=== PATIENT | female | born 1985 | race Caucasian/White ===

== ENCOUNTER 2016-07-22 00:20 | Outpatient (CLI) | payer BC, MEDICAID ==
[2016-07-22 01:17] LABS: APPEARANCE,URINE CLEAR; BILIRUBIN,URINE NEGATIVE (NEGATIVE); GLUCOSE, URINE NEGATIVE (NEGATIVE); KETONES,URINE NEGATIVE (NEGATIVE); LEUKOCYTE ESTERASE,URINE NEGATIVE (NEGATIVE); NITRITE,URINE NEGATIVE (NEGATIVE); PROTEIN,URINE NEGATIVE (NEGATIVE); URINE SPECIFIC GRAVITY 1.009; UROBILINOGEN,URINE NEGATIVE mg/dL (<2.0)
[2016-07-22 01:34] LABS: URINE BARBITURATES SCREEN NEGATIVE; URINE METHADONE SCREEN NEGATIVE; URINE OPIATES LOW NEGATIVE
[2016-07-22 01:52] LABS: URINE PHENCYCLIDINE SCREEN NEGATIVE
--- NOTE | 2016-07-22 04:46 | L&D Flow Sheet ---
LD Flowsheet Datetime Report Generated by CPN: 07/22/2016 04:45 Datetime: 07/22/2016 02:12 Vital Signs Stage of : OB Triage (Crystal [place], RN) Communication Comments: Pt left the unit ambulatory with mother, pt care relinquished. (Crystal [place], RN) Datetime: 07/22/2016 02:04 Vital Signs Stage of : OB Triage (Miriam Álvarez RN) Strip Reviewed by: Tarsha Álvarez RN (Miriam Álvarez RN) Communication Communication: RN at Bedside; RN Reviewed Strip (Miriam Álvarez RN) Notification Reason: Status Update; Lab/Diagnostic Study (Miriam Álvarez RN) Communication Comments: Pt taken off the monitors. Pt educated on the effects of drinking during and mixing alcohol with medications, pt mother will be driving her home from the hospital. Pt will follow up with [facility] as scheduled. labor education given. (Miriam Álvarez RN) Datetime: 07/22/2016 02:01 Vital Signs Stage of : OB Triage (Miriam Álvarez RN) Strip Reviewed by: Tarsha Álvarez RN (Miriam Álvarez RN) Communication Communication: Provider Orders Received (Miriam Álvarez RN) Provider Notified (Name): Gleason (Miriam Álvarez RN) Notification Reason: Status Update (Miriam Álvarez RN) Communication Comments: REport given on VE and blood alcohol level of 0.12, Receivered orders to DC. (Crystal Henri, RN) Datetime: 07/22/2016 01:51 I/O Interventions: Up to BR (Crystal Henri, RN) Datetime: 07/22/2016 01:47 Vaginal Exam Dilatation (cm): 0.0 (Kristine Green RN) Effacement (%): 0 (Kristine Green RN) Station: -3 (Kristine Green RN) Exam by: Raz Green RN (Kristine Peter, RN) Vaginal Bleeding: None (Kristine Peter, RN) Cervix, Consistency: Firm (Kristine Peter, RN) Cervix, Position: Posterior (Kristine Peter, RN) Datetime: 07/22/2016 01:30 Uterine Activity Monitor Mode: External; Palpation (Crystal [place], RN) Frequency (min): 0 (Crystal Henri, RN) Resting Tone (Palpate): Relaxed (Crystal Henri, RN) Contraction Comments: Pt reports back cramping (Crystal Henri, RN) Assessment A Monitor Mode: External US (Crystal Henri, RN) FHR Baseline Rate : 125 (Crystal Henri, RN) Variability: Minimal - Undetectable to <=5 bpm (Crystal Henri, RN) Accelerations: None (Crystal Henri, RN) Decelerations: None (Crystal [place], RN) Datetime: 07/22/2016 01:29 Patient Care IV/Blood Work: Labs Drawn (Crystal Henri, RN) Datetime: 07/22/2016 01:22 I/O Interventions: Popsicle; Clear Liquids Given (Crystal Henri, RN) Datetime: 07/22/2016 01:17 Vital Signs Stage of : OB Triage (Crystal [place], RN) Strip Reviewed by: C. Pendrgrass, RN (Crystal [place], RN) Communication Communication: Call/Page Placed to Provider (Crystal [place], RN) Provider Notified (Name): Gleason (Crystal Henri, RN) Notification Reason: Status Update; Uterine Activity (Miriam Álvarez, RN) Communication Comments: Received orders for blood alcohol level and cervical exam. (Miriam Álvarez, RN) Datetime: 07/22/2016 01:07 NBP Sys/Eva/Mean (mmHg): 140 (QS system process) : 80 (QS system process) : 104 (QS system process) Pulse: 95 (QS system process) Datetime: 07/22/2016 01:00 Assessment A Monitor Mode: External US (Crystal Henri, RN) FHR Baseline Rate : 125 (Crystal [place], RN) Variability: Minimal - Undetectable to <=5 bpm (Crystal [place], RN) Accelerations: None (Crystal Henri, RN) Decelerations: None (Crystal Henri, RN) Datetime: 07/22/2016 00:30 Pain Pain Scale: 3 (Crystal Henri, RN) Pain Presence: Constant (Crystal [place], RN) Pain Type: Cramping (Crystal Henri, RN) Pain Location: Abdomen (Crystal Henri, RN) Pain Goal: 1 (Crystal [place], RN) Pain Relief Measures: Comfort Measures (Crystal Henri, RN) Vaginal Bleeding: None (Crystal [place], RN) Maternal Assessment Level of Consciousness: Fully Conscious (Crystal Henri, RN) DTR's/Clonus: DTRs 1+; No Clonus (Crystal Henri, RN) Headache: Denies (Crystal Henri, RN) Breath Sounds, Left: Clear and Equal (Crystal Henri, RN) Breath Sounds, Right: Clear and Equal (Crystal Henri, RN) Nausea/Vomiting: Denies (Crystal Henri, RN) RUQ Epigastric Pain: Denies (Crystal [place], RN)
--- NOTE | 2016-07-22 04:46 | L&D General Admission ---
General Admit Datetime Report Generated by CPN: 07/22/2016 04:45 INFORMATION Patient Age: 30 (07/22/2016 00:21:QS system process) EDC: 10/15/2016 00:00 (07/22/2016 00:24:Miriam Álvarez RN) : 2 (07/22/2016 00:24:Miriam Álvarez RN) Para: 0 (07/22/2016 02:11:Miriam Álvarez RN) Para: 0 (07/22/2016 00:24:Miriam Álvarez RN) Term: 0 (07/22/2016 00:24:Verena Dexter RN) : 0 (07/22/2016 00:24:Verena Dexter RN) Spontaneous Abortions: 0 (07/22/2016 00:24:Verena Dexter RN) Induced Abortions: 1 (07/22/2016 00:24:Verena Dexter RN) Livin (07/22/2016 00:24:Verena Dexter RN) Cesareans: 0 (07/22/2016 00:24:Verena Dexter RN) VBACs: 0 (07/22/2016 00:24:Verena Dexter RN) Ectopic: 0 (07/22/2016 00:24:Verena Dexter RN) Multiple Births: 0 (07/22/2016 00:24:Verena Dexter RN) Baby, Number in Womb: 1 (07/22/2016 02:11:Miriam Álvarez RN) Baby, Number in Womb: 1 (07/22/2016 00:24:Verena Dexter RN) CARE Primary College Sports Assistant: [facility] (07/22/2016 00:24:Miriam Álvarez RN) Adequate Care: Yes (07/22/2016 00:24:Miriam Álvarez RN) Height (in): 66 (07/22/2016 00:41:QS system process) Height (in): 66 (07/22/2016 00:37:QS system process) ALLERGIES Medication Allergy: Yes (07/22/2016 00:24:Miriam Álvarez RN) Medication Allergies: lisinopril (07/22/2016); erythromycin base (07/22/2016); mirtazapine (07/22/2016) (07/22/2016 00:41:QS system process) Medication Allergies: lisinopril (04/11/2016); erythromycin base (04/11/2016); mirtazapine (04/11/2016) (07/22/2016 00:21:QS system process) Latex Allergy: No Latex Allergies (07/22/2016 00:24:Miriam Álvarez RN) COMMUNICATION Primary Language: Georgian (07/22/2016 00:24:Miriam Álvarez RN) Medical Tx Preferred Language: Georgian (07/22/2016 00:24:Miriam Álvarez RN) Communication Barrier(s): None (07/22/2016 00:24:Miriam Álvarez RN) DEMOGRAPHICS Address: [address] [place] [id number] (07/22/2016 00:21:QS system process) Zipcode: [address] (07/22/2016 00:21:QS system process) Home (07/22/2016 00:21:QS system process) SSN: [id number] (07/22/2016 00:21:QS system process) Next of Kin Name: WILLIAM PALACIOS (07/22/2016 00:21:QS system process) Next of Kin (07/22/2016 00:21:QS system process) Next of Kin Relationship: MO (07/22/2016 00:21:QS system process) Date of : 1985 (07/22/2016 00:21:QS system process) Marital Status: Single (07/22/2016 00:21:QS system process) Sex: Female (07/22/2016 00:21:QS system process) Race: (07/22/2016 00:21:QS system process) Ethnicity: Non- or (07/22/2016 00:21:QS system process) Latter-Day: No Taoist Info Avail. (07/22/2016 00:21:QS system process) DRUG AND ALCOHOL USE Alcohol: Yes (07/22/2016 00:24:Miriam Álvarez RN) Cigarettes: Current Some Day Smoker. [id number] (07/22/2016 00:24:Miriam Álvarez RN) Marijuana: No (07/22/2016 00:24:Miriam Álavrez RN) Cocaine: No (07/22/2016 00:24:Miriam Álvarez RN) Other Illicit Drugs: No (07/22/2016 00:24:Miriam Álvarez RN) VACCINE HISTORY Influenza Vaccine: Yes (07/22/2016 00:24:Verena Dexter RN) Pneumococcal Vaccine: No (07/22/2016 00:24:Miriam Álvarez RN) Tetanus Vaccine: No (07/22/2016 00:24:Miriam Álvarez RN) Tdap Vaccine: No (07/22/2016 00:24:Miriam Álvarez RN) Hepatitis B Vaccine: No (07/22/2016 00:24:Miriam Álvarez RN) Ob Scrub Tech: Other (07/22/2016 00:24:Miriam Álvarez RN) Feeding Preference: Breast (07/22/2016 00:24:Miriam Álvarez RN) Benefit of Breast Feed Discussed: Yes (07/22/2016 00:24:Miriam Álvarez RN) Circumcision: N/A (07/22/2016 00:24:Miriam Álvarez RN) Classes Attended: Unknown (07/22/2016 00:24:Miriam Álvarez RN) Tubal Ligation: No (07/22/2016 00:24:Miriam Álvarez RN) Tubal Authorization Signed: N/A (07/22/2016 00:24:Miriam Álvarez RN) Consent: N/A (07/22/2016 00:24:Miriam Álvarez RN) Consent Signed: N/A (07/22/2016 00:24:Miriam Álvarez RN) Pain Management Plans: Epidural (07/22/2016 00:24:Miriam Álvarez RN) Support Person Relationship: Other (07/22/2016 00:24:Miriam Álvarez RN) Cultural/Spritual Practice: No (07/22/2016 00:24:Miriam Álvarez RN) Spir/Cult Dietary Needs: No (07/22/2016 00:24:Miriam Álvarez RN) LIVING SITUATION/DISCHARGE PLAN Living Arrangements: House (07/22/2016 00:24:Miriam Álvarez RN) Adequate Access to:: Electric; Heat; Refrigeration; Plumbing/Running water; Phone; Transportation (07/22/2016 00:24:Miriam Álvarez RN) WIC Program: Yes (07/22/2016 00:24:Miriam Álvarez RN) Currently Using Commun Resources: Yes (07/22/2016 00:24:Miriam Álvarez RN) Outside Agency/[facility] Nurse: Yes (07/22/2016 00:24:Miriam Álvarez RN) Car Seat for Discharge: No (07/22/2016 00:24:Miriam Álvarez RN) Adoption Requested: No (07/22/2016 00:24:Miriam Álvarez RN) Pt Contact w/ Post : N/A (07/22/2016 00:24:Miriam Álvarez RN) LABS Blood Type: A Positive (07/22/2016 00:24:Miriam Álvarez RN) Antibody Screen: Negative (07/22/2016 00:24:Miriam Álvarez RN) Gonorrhea: Negative (07/22/2016 00:24:Miriam Álvarez RN) Chlamydia: Negative (07/22/2016 00:24:Miraim Álvarez RN) RPR/VDRL: Nonreactive (07/22/2016 00:24:Verena Dexter RN) Hepatitis B: Negative (07/22/2016 00:24:Verena Dexter RN) Rubella: Immune (07/22/2016 00:24:Miriam Álvarez RN) OB/PREVIOUS HISTORY Current Procedures: Ultrasound (07/22/2016 00:24:Verena Dexter RN) History of Previous : No (07/22/2016 00:24:Miriam Álvarez RN) History of Gestational Diabetes: No (07/22/2016 00:24:Miriam Álvarez RN) History of PIH: No (07/22/2016 00:24:Miriam Álvarez RN) History of Incompetent Cervix: No (07/22/2016 00:24:Miriam Álvarez RN) History of Placenta Previa/Abrup: No (07/22/2016 00:24:Miriam Álvarez RN) History of Macrosomia: No (07/22/2016 00:24:Miriam Álvarez RN) History of IUGR: Yes (07/22/2016 00:24:Verena Dexter RN) History of Hemorrhage: No (07/22/2016 00:24:Miriam Álvarez RN) History of Loss/Stillborn: No (07/22/2016 00:24:Miriam Álvarez RN) History of : No (07/22/2016 00:24:Miriam Álvarez RN) History of D (Rh) Sensitization: No (07/22/2016 00:24:Miriam Álvarez RN) History Recurrent Loss/Stillborn: No (07/22/2016 00:24:Miriam Álvarez RN) History Depression/PP Depression: No (07/22/2016 00:24:Miriam Álvarez RN) History of Uterine Anomaly/SANTIAGO: No (07/22/2016 00:24:Miriam Álvarez RN) History of Infertility: No (07/22/2016 00:24:Miriam Álvarez RN) History of ART Treatment: No (07/22/2016 00:24:Miriam Álvarez RN) History of SANTIAGO: No (07/22/2016 00:24:Miriam Álvarez RN) Comments Obstetrical History: G1: 10 wk EAB G2: Current , PROM and anhydramnios at 13 weeks. Membranes resealed, per MFM amniotic fluid reaccumulated since, IUGR (07/22/2016 00:24:Verena Dexter RN) MEDICAL HISTORY Med Hx Diabetes: No (07/22/2016 00:24:Miriam Álvarez RN) Med Hx Hypertension: Yes (07/22/2016 00:24:Verena Dexter RN) Med Hx Heart Disease: No (07/22/2016 00:24:Miriam Álvarez RN) Med Hx Autoimmune Disorder: No (07/22/2016 00:24:Miriam Álvarez RN) Med Hx Kidney Disease/UTI: Yes (07/22/2016 00:24:Verena Dexter RN) Med Hx Neurologic/Epilepsy: No (07/22/2016 00:24:Miriam Álvarez RN) Med Hx Psychiatric Disorders: Yes (07/22/2016 00:24:Verena Dexter RN) Med Hx Hepatitis/Liver Disease: No (07/22/2016 00:24:Miriam Álvarez RN) Med Hx Varicosities/Phlebitis: No (07/22/2016 00:24:Miriam Álvarez RN) Med Hx Thyroid Dysfunction: No (07/22/2016 00:24:Miriam Álvarez RN) Med Hx Trauma/Violence: No (07/22/2016 00:24:Miriam Álvarez RN) Med Hx Blood Transfusion: No (07/22/2016 00:24:Miriam Álvarez RN) Med Hx Pulmonary (Asthma,TB): No (07/22/2016 00:24:Miriam Álvarez RN) Med Hx Breast: No (07/22/2016 00:24:Miriam Álvarez RN) Med Hx CLINICAL RESEARCH ASSOCIATE Surgery: No (07/22/2016 00:24:Miriam Álvarez RN) Med Hx Hospitalization/Surgery: Yes (07/22/2016 00:24:Verena Dexter RN) Med Hx Anesthetic Complications: No (07/22/2016 00:24:Miriam Álvarez RN) Med Hx Abnormal Pap Smear: No (07/22/2016 00:24:Miriam Álvarez RN) Other Medical Diseases: No (07/22/2016 00:24:Miriam Álvarez RN) Med Hx Significant Family Hx: No (07/22/2016 00:24:Miriam Álvarez RN) Details of Med/Surg Hx: htn: chronic htn, on labetalol and clonidine kidney: freq UTIs, on macrobid suppresion, "short" urethra psych: severe anxiety, depression GERD surgical: ankle, wisdom teeth (07/22/2016 00:24:Verena Dexter RN) INFECTIOUS HISTORY Inf Hx Gonorrhea: No (07/22/2016 00:24:Miriam Álvarez RN) Inf Hx Chlamydia: Yes (07/22/2016 00:24:Verena Dexter RN) Inf Hx Syphilis: No (07/22/2016 00:24:Miriam Álvarez RN) Inf Hx HIV/AIDS: No (07/22/2016 00:24:Miriam Álvarez RN) Inf Hx Human Papilloma Virus: No (07/22/2016 00:24:Miriam Álvarez RN) Inf Hx Pt/Partner Genital Herpes: No (07/22/2016 00:24:Miriam Álvarez RN) Inf Hx Tuberculosis/Exposure: No (07/22/2016 00:24:Miriam Álvarez RN) Inf Hx Hepatitis B,C: No (07/22/2016 00:24:Miriam Álvarez RN) Inf Hx Rash or Viral Illness: No (07/22/2016 00:24:Miriam Álvarez RN) Details of Infectious Hx: chlamydia 2013 (07/22/2016 00:24:Verena Dexter RN) GENETIC HISTORY Gen Hx Age >=35 at [place]: No (07/22/2016 00:24:Miriam Álvarez RN) Gen Hx Thalassemia: No (07/22/2016 00:24:Miriam Álvarez RN) Gen Hx Congenital Heart Defect: No (07/22/2016 00:24:Miriam Álvarez RN) Gen Hx Neural Tube Defect: No (07/22/2016 00:24:Miriam Álvarez RN) Gen Hx Down's Syndrome: No (07/22/2016 00:24:Miriam Álvarez RN) Gen Hx Jose Martin-Sachs: No (07/22/2016 00:24:Miriam Álvarez RN) Gen Hx Galen: No (07/22/2016 00:24:Miriam Álvarez RN) Gen Hx Familial Dysautonomia: No (07/22/2016 00:24:Miriam Álvarez RN) Gen Hx Sickle Cell Disease/Trait: No (07/22/2016 00:24:Miriam Álvarez RN) Gen Hx Hemophilia/Blood Disorder: No (07/22/2016 00:24:Miriam Álvarez RN) Gen Hx Muscular Dystrophy: No (07/22/2016 00:24:Miriam Álvarez RN) Gen Hx Cystic Fibrosis: No (07/22/2016 00:24:Miriam Álvarez RN) Gen Hx Huntingtons Chorea: No (07/22/2016 00:24:Miriam Álvarez RN) Gen Hx Mental Retardation/Autism: No (07/22/2016 00:24:Miriam Álvarez RN) Gen Hx Tested for Fragile X: No (07/22/2016 00:24:Miriam Álvarez RN) Gen Hx Other Inher/Chromosomal: No (07/22/2016 00:24:Miriam Álvarez RN) Gen Hx Maternal Metabolic DO: No (07/22/2016 00:24:Miriam Álvarez RN) Gen Hx Pt Father or FOB Defect: No (07/22/2016 00:24:Miriam Álvarez RN) Gen Hx Other Genetic History: No (07/22/2016 00:24:Miriam Álvarez RN) Gen Hx Drugs/Meds since LMP: No (07/22/2016 00:24:Miriam Álvarez RN)
--- NOTE | 2016-07-22 04:46 | L&D Current Admission ---
Current Admit Datetime Report Generated by CPN: 07/22/2016 04:45 ADMISSION INFORMATION Chief Complaint: Uterine Cramping (07/22/2016 00:30:Crystal Henri, STEFANI)
--- NOTE | 2016-07-22 04:46 | Antepartum Discharge Summary ---
Antepartum DC Datetime Report Generated by CPN: 07/22/2016 04:45 DIET/ACTIVITY/RESTRICTIONS Diet: Regular (07/22/2016 02:11:Crystal Henri, RN) Activity: Normal Activity (07/22/2016 02:11:Crystal Henri, RN) TEACHING/INSTRUCTIONS/REFERRALS Instructions Given To: Pt _ mom (07/22/2016 02:11:Crystal [place], RN) Instructions Understood: Patient Verbalized Understanding; Support Person Verbalized Understanding (07/22/2016 02:11:Miriam Álvarez RN) Referrals: None (07/22/2016 02:11:Miriam Álvarez RN) Educational Materials- Other: labor education given. (07/22/2016 02:11:Miriam Álvarez RN) DISCHARGE INFORMATION Discharged AMA: No (07/22/2016 02:11:Miriam Álvarez RN) Discharge Date/Time: 07/22/2016 02:12 (07/22/2016 02:11:Miriam Álvarez RN) Discharged To: Home (07/22/2016 02:11:Miriam Álvarez RN) Discharge Provider Name: Gleason (07/22/2016 02:11:Miriam Álvarez RN) Accompanied By: mother (07/22/2016 02:11:Miriam Álvarez RN) Discharge Method: Ambulatory (07/22/2016 02:11:Miriam Álvarez RN) Condition: Stable (07/22/2016 02:11:Miriam Álvarez RN) FOLLOW UP INFORMATION Follow Up With: [facility] (07/22/2016 02:11:Miriam Álvarez RN) Follow Up On: As Scheduled (07/22/2016 02:11:Miriam Álvarez RN) Follow Up Phone Number: [facility] - (07/22/2016 02:11:Miriam Álvarez RN) Comments: Pt taken off the monitors. Pt educated on the effects of drinking during and mixing alcohol with medications, pt mother will be driving her home from the hospital. Pt will follow up with [facility] as scheduled. labor education given. (07/22/2016 02:11:Miriam Álvarez RN)
--- NOTE | 2016-07-22 04:46 | L&D Discharge Summary ---
OB Discharge Summary Datetime Report Generated by CPN: 07/22/2016 04:45 DISCHARGE DIAGNOSIS Diagnosis/Symptoms: False Labor Diagnoses/Symptoms Other: Pt taken off the monitors. Pt educated on the effects of drinking during and mixing alcohol with medications, pt mother will be driving her home from the hospital. Pt will follow up with [facility] as scheduled. labor education given. Treatment/Procedures Other: Popsicle and fluids Number of Babies in Womb: 1 Parity: 0 DIET/ACTIVITY/RESTRICTIONS Diet: Regular Activity: Normal Activity TEACHING/INSTRUCTIONS/REFERRALS Instructions Given To: Pt _ mom Instructions Understood: Patient Verbalized Understanding; Support Person Verbalized Understanding Referrals: None Educational Materials- Other: labor education given. DISCHARGE INFORMATION Discharged AMA: No Discharge Date/Time: 07/22/2016 02:12 Discharged To: Home Discharge Provider Name: Gleason Accompanied By: mother Discharge Method: Ambulatory Condition: Stable FOLLOW UP INFORMATION Follow Up With: [facility] Follow Up On: As Scheduled Follow Up Phone Number: [facility] - Comments: Pt taken off the monitors. Pt educated on the effects of drinking during and mixing alcohol with medications, pt mother will be driving her home from the hospital. Pt will follow up with [facility] as scheduled. labor education given.
--- NOTE | 2016-07-22 04:46 | L&D Admission Assessment ---
LD ADM ASMT Datetime Report Generated by CPN: 07/22/2016 04:45 PATIENT ASSESSMENT Assessment Type: Triage (07/22/2016 00:30:Crystal Bernice, RN) WEIGHT Weight (lb): 260 (07/22/2016 00:41:QS system process) Weight (lb): 260 (07/22/2016 00:37:QS system process) Weight (kg): 118.2 (07/22/2016 00:41:QS system process) Weight (kg): 118.2 (07/22/2016 00:37:QS system process) BMI: 42.0 (07/22/2016 00:41:QS system process) PAIN Pain Scale: 3 (07/22/2016 00:30:Crystal Bernice, RN) Pain Presence: Constant (07/22/2016 00:30:Crystal Henri, RN) Pain Type: Cramping (07/22/2016 00:30:Crystal Henri, RN) Pain Location: Abdomen (07/22/2016 00:30:Crystal Bernice, RN) Pain Goal: 1 (07/22/2016 00:30:Crystal Bernice, RN) Pain Related to Contraction: No (07/22/2016 00:30:Crystal Henri, RN) CONTRACTIONS Frequency (min): 0 (07/22/2016 01:30:Crystal Bernice, RN) Resting Tone [place]: Relaxed (07/22/2016 01:30:Crystal Bernice, RN) Contraction Comments: Pt reports back cramping (07/22/2016 01:30:Crystal Bernice, RN) VAGINAL EXAM Dilatation (cm): 0.0 (07/22/2016 01:47:Kristine Green RN) Effacement (%): 0 (07/22/2016 01:47:Kristine Green RN) Station: -3 (07/22/2016 01:47:Kristine Green RN) NEURO Level of Consciousness: Fully Conscious (07/22/2016 00:30:Miriam Álvarez RN) DTR's/Clonus: DTRs 1+; No Clonus (07/22/2016 00:30:Crystal Henri, RN) Headache: Denies (07/22/2016 00:30:Miriam Álvarez RN) Dizziness: Yes (07/22/2016 00:30:Miriam Álvarez RN) Blurred Vision: No (07/22/2016 00:30:Miriam Álvarez, RN) Extremity Numbness/Tingling : None (07/22/2016 00:30:Miriam Álvarez RN) Extremity Movement: Full Range of Motion (07/22/2016 00:30:Crystal Henri, RN) CARDIOVASCULAR Heart Rhythm: Regular (07/22/2016 00:30:Crystal Bernice, RN) Nailbeds: [place] (07/22/2016 00:30:Crystal Henri, RN) Capillary Refill: Less than 3 Seconds (07/22/2016 00:30:Crystal Henri, RN) Lower Extremities Edema: Bilateral Lower Extremities (07/22/2016 00:30:Crystal Bernice, RN) Lower Extremities Edema Degree: None (07/22/2016 00:30:Crystal Bernice, RN) Upper Extremities Edema: None (07/22/2016 00:30:Crystal Bernice, RN) Upper Extremities Edema Degree: None (07/22/2016 00:30:Crystal Henri, RN) Facial Edema: None (07/22/2016 00:30:Crystal Bernice, RN) Angelica's Sign Left Leg: Negative (07/22/2016 00:30:Crystal Bernice, RN) Angelica's Sign Right Leg: Negative (07/22/2016 00:30:Crystal Bernice, RN) DVT RISK ASSESSMENT DVT Risk Age: Age less than 41 years (07/22/2016 00:30:Miriam Álvarez RN) DVT Risk BMI: BMI 31 to 40 (07/22/2016 00:30:Miriam Álvarez RN) DVT Risk Surgery: Minor Surgery Planned (Annotations: Ankle surgery 02/2015) (07/22/2016 00:30:Miriam Álvarez RN) DVT Risk Other: None Applicable (07/22/2016 00:30:Miriam Álvarez RN) DVT Risk Total: 2 (07/22/2016 00:30:QS system process) DVT Risk Text: Moderate Risk (10-20%) - Consider stockings, compresssion device, pharmacological therapy per hospital policy (07/22/2016 00:30:QS system process) RESPIRATORY Respiratory Effort: Unlabored; Regular Rhythm; Equal Expansion (07/22/2016 00:30:Miriam Henri, RN) Breath Sounds, Left: Clear and Equal (07/22/2016 00:30:Crystal Bernice, RN) Breath Sounds, Right: Clear and Equal (07/22/2016 00:30:Crystal Henri, RN) Cough Productivity: None (07/22/2016 00:30:Miriam Bernice, RN) GASTROINTESTINAL Nausea/Vomiting: Denies (07/22/2016 00:30:Crystal Henri, RN) Bowel Sounds: Normoactive (07/22/2016 00:30:Crystal Henri, RN) RUQ Epigastric Pain: Denies (07/22/2016 00:30:Crystal Henri, RN) Response to Antacids: Pain Relieved (07/22/2016 00:30:Crystal Henri, RN) Bowel Patterns: Diarrhea (07/22/2016 00:30:Crystal Bernice, RN) Hemorrhoids: None (07/22/2016 00:30:Crystal Bernice, RN) Diet Type: Regular diet (07/22/2016 00:30:Crystal Bernice, RN) Last Meal: 07/22/2016 21:00 (07/22/2016 00:30:Crystal Bernice, RN) GENITOURINARY Bladder: Nondistended (07/22/2016 00:30:Crystal Bernice, RN) INTEGUMENTARY Skin Color: Normal for Race (07/22/2016 00:30:Miriam Álvarez RN) Skin Temperature: Warm (07/22/2016 00:30:Miriam Álvarez RN) Skin Moisture: Dry (07/22/2016 00:30:Miriam Álvarez RN) DOMI SKIN ASSESSMENT Domi Scale Sensory Perception: No Impairment- Responds to verbal commands. Has no sensory deficit which would limit ability to feel or voice pain or discomfort (07/22/2016 00:30:Miriam Álvarez RN) Domi Scale Moisture: Rarely Moist- Skin is usually dry. Linen only requires changing at routine intervals (07/22/2016 00:30:Miriam Álvarez RN) Domi Scale Activity: Walks Frequently- Walks outside the room at least twice a day and inside room at least every 2 hours during the day. (07/22/2016 00:30:Miriam Álvarez RN) Domi Scale Mobility: No Limitations- Makes major and frequent changes in position without assistance (07/22/2016 00:30:Miriam Álvarez RN) Domi Scale Nutrition: Excellent- Eats most of every meal. Never refuses a meal. Usually eats a total of 4 or more servings of meat and dairy products. Occasionally eats between meals. Does not require supplementation (07/22/2016 00:30:Miriam Álvarez RN) Domi Scale Friction and Shear: No Apparent Problem- Moves in bed and in chair independently and has sufficient muscle strength to lift up completely during move. Maintains good position in bed or chair at all times (07/22/2016 00:30:Miriam Álvarez RN) Domi Scale Total: 23 (07/22/2016 00:30:QS system process) Domi Scale Risk: No Risk of Pressure Ulcer Noted at this Time (07/22/2016 00:30:QS system process) SUPPORT Family Support: Family supportive (07/22/2016 00:30:Miriam Álvarez RN) Emotional State: Anxious (07/22/2016 00:30:Miriam Álvarez RN) SAFETY Call [facility] Within Reach: Yes (07/22/2016 00:30:Miriam Álvarez RN) Side Rails Up: Yes (07/22/2016 00:30:Miriam Álvarez RN) Bed Wheels Locked: Yes (07/22/2016 00:30:Miriam Álvarez RN) Arm Bands Present: Yes (07/22/2016 00:30:Miriam Álvarez RN) Isolation: [employer] (07/22/2016 00:30:Miriam Álvarez RN) FALL SCREEN Fall Risk History of Falling: (0) No (07/22/2016 00:30:Miriam Álvarez RN) Fall Risk Secondary Diagnosis: (0) No (07/22/2016 00:30:Miriam Álvarez RN) Fall Risk Ambulatory Aid: (0) None/Bedrest/Wheelchair/Nurse Assist (07/22/2016 00:30:Miriam Álvarez RN) Fall Risk IV Therapy: (0) No (07/22/2016 00:30:Miriam Álvarez RN) Fall Risk Gait: (0) Normal/Bedrest/Immobile (07/22/2016 00:30:Miriam Álvarez RN) Fall Risk Mental Status: (0) Oriented to Own Ability (07/22/2016 00:30:Miriam Álvarez RN) Fall Risk Score: 0 (07/22/2016 00:30:QS system process) Fall Risk Score Definition: No Risk: No action required (07/22/2016 00:30:QS system process) RECENT TRAVEL/INFECTIOUS DISEASE Recent Exp Communicable Disease: No (07/22/2016 00:30:Miriam Álvarez RN) Cough or Fever: No (07/22/2016 00:30:Miriam Álvarez RN) Foreign Travel Past 10 Days: No (07/22/2016 00:30:Miriam Álvarez RN) Open Wounds or Sores: No (07/22/2016 00:30:Miriam Álvarez RN) Prior Antibiotic Resistance Tx: No (07/22/2016 00:30:Miriam Álvarez RN) Cultures Obtained: Not Applicable (07/22/2016 00:30:Miriam Álvarez RN) Isolation Initiated: No (07/22/2016 00:30:Miriam Álvarez RN) Pt/Family Education: Not Applicable (07/22/2016 00:30:Miriam Álvarez RN) BABY A FHR Baseline Rate (bpm) Baby A: 125 (07/22/2016 01:30:Miriam Álvarez RN) FHR Baseline Rate (bpm) Baby A: 125 (07/22/2016 01:00:Miriam Álvarez RN) Variability Baby A: Minimal - Undetectable to <=5 bpm (07/22/2016 01:30:Miriam YoungerergSTEFANI shrestha) Variability Baby A: Minimal - Undetectable to <=5 bpm (07/22/2016 01:00:Miriam YoungerergSTEFANI shrestha) Accelerations Baby A: None (07/22/2016 01:30:Miriam Álvarez RN) Accelerations Baby A: None (07/22/2016 01:00:Miriam Álvarez RN) Decelerations Baby A: None (07/22/2016 01:30:Miriam Álvarez RN) Decelerations Baby A: None (07/22/2016 01:00:Miriam Álvarez RN)
== END 2016-07-22 02:12 | disposition home or self-care (01) ==
LOC: LC 00:20
PROVIDERS: ATTEND Obstetrics & Gynecology
PROC: 4A1HXCZ Monitoring of Products of Conception, Cardiac Rate, External Approach (ICD-10-PCS; principal; 2016-07-22)
DX: Z34.92 Encounter for supervision of normal pregnancy, unspecified, second trimester (principal); Z3A.27 27 weeks gestation of pregnancy
CPT/HCPCS: 36415; 80307; 81001

== ENCOUNTER 2016-08-03 20:26 | Outpatient (CLI) | payer BC, MEDICAID ==
[2016-08-03 21:19] LABS: APPEARANCE,URINE CLEAR; BILIRUBIN,URINE NEGATIVE (NEGATIVE); GLUCOSE, URINE NEGATIVE (NEGATIVE); KETONES,URINE TRACE mg/dL (NEGATIVE); LEUKOCYTE ESTERASE,URINE NEGATIVE (NEGATIVE); NITRITE,URINE NEGATIVE (NEGATIVE); PROTEIN,URINE NEGATIVE (NEGATIVE); URINE SPECIFIC GRAVITY 1.009; UROBILINOGEN,URINE NEGATIVE mg/dL (<2.0)
[2016-08-03 21:25] LABS: AMNISURE (ROM) NEGATIVE (NEGATIVE)
[2016-08-03 21:34] LABS: URINE BARBITURATES SCREEN NEGATIVE; URINE METHADONE SCREEN NEGATIVE; URINE OPIATES LOW NEGATIVE; URINE PHENCYCLIDINE SCREEN NEGATIVE
--- NOTE | 2016-08-03 22:00 | L&D Flow Sheet ---
LD Flowsheet Datetime Report Generated by CPN: 08/03/2016 22:00 Datetime: 08/03/2016 21:40 Patient Care Comments: Pt returned from u/s, toco reapplied. No FHT monitoring per orders from Dr Ly (Verena Guerita, RN) Datetime: 08/03/2016 21:06 Vital Signs NBP Sys/Eva/Mean (mmHg): 137 (QS system process) : 74 (QS system process) : 97 (QS system process) Pulse: 95 (QS system process) LaborFlag: OB Triage (QS system process) Datetime: 08/03/2016 21:00 Uterine Activity Quality: RN palpating entire abd when pt reports pain. Abd soft (Verena Guerita, RN) Vaginal Exam Vaginal Bleeding: None (Verena Guerita, RN) Maternal Assessment Level of Consciousness: Fully Conscious (Verena Guerita, RN) DTR's/Clonus: DTRs 2+; No Clonus (Verena Guerita, RN) Headache: Generalized (Verena Guerita, RN) Breath Sounds, Left: Clear and Equal (Verena Guerita, RN) Breath Sounds, Right: Clear and Equal (Verena Guerita, RN) Nausea/Vomiting: Denies (Verena Guerita, RN) RUQ Epigastric Pain: Denies (Verena Guerita, RN) Patient Care Patient Position/Activity: Right Tilt (Verena Guerita, RN) Teaching Instructional Method: Verbal; Patient Instructed; Family/Support Person Instructed; Verbalized Understanding (Verena Dexter RN) Plan of Care: Plan of Care Discussed; Labor (Verena Dexter RN) Unit Routine: [place] to Room; Call [facility]; Visiting Policy; Waiting Areas; Unit Personnel; Monitoring (Verena Dexter RN) Datetime: 08/03/2016 20:11 Communication Additional Nursing Comments: Monitors removed, pt to u/s accompanied by RN (Verena Dexter RN)
== END 2016-08-03 22:12 | disposition home or self-care (01) ==
LOC: LC 20:26
PROVIDERS: ATTEND Obstetrics & Gynecology
PROC: 4A1HXCZ Monitoring of Products of Conception, Cardiac Rate, External Approach (ICD-10-PCS; principal; 2016-08-03)
DX: O47.02 False labor before 37 completed weeks of gestation, second trimester (principal); Z3A.26 26 weeks gestation of pregnancy
CPT/HCPCS: 76815; 80307; 81001; 84112

== ENCOUNTER → 2016-08-30 | Outpatient (CLI) | payer MEDICAID ==
[2016-08-31 12:12] LABS: HEMATOCRIT 35.3 % (36.0-47.0); HEMOGLOBIN 11.9 g/dL (12.0-15.5); HGB HCT DIFFERENCE 0.4; MEAN CORPUSCULAR HEMOGLOBIN 29.3 pg (27.0-33.4); MEAN CORPUSCULAR HGB CONC 33.7 g/dL (32.0-36.0); MEAN CORPUSCULAR VOLUME 87 fl (80-97); RED BLOOD COUNT 4.06 10^6/uL (3.72-5.28); RED CELL DISTRIBUTION WIDTH 13.6 % (11.5-14.0); WHITE BLOOD COUNT 18.9 10^3/uL (4.0-10.5)
[2016-08-31 12:43] LABS: ASPARTATE AMINO TRANSFERASE 10 U/L (14-36); CREATININE RESULT 0.49 mg/dL (0.52-1.25); LDH 371 U/L (313-618); URIC ACID 4.6 mg/dL (2.5-6.2)
== END ==
LOC: OD 14:13
PROVIDERS: ATTEND Obstetrics & Gynecology
DX: O16.9 Unspecified maternal hypertension, unspecified trimester (principal); Z3A.00 Weeks of gestation of pregnancy not specified
CPT/HCPCS: 36415; 82565; 83615; 84450; 84550; 85027

== ENCOUNTER 2016-09-02 14:53 | Outpatient (CLI) | payer MEDICAID ==
[2016-09-02 16:07] LABS: APPEARANCE,URINE CLEAR; BILIRUBIN,URINE NEGATIVE (NEGATIVE); GLUCOSE, URINE NEGATIVE (NEGATIVE); KETONES,URINE NEGATIVE (NEGATIVE); LEUKOCYTE ESTERASE,URINE NEGATIVE (NEGATIVE); NITRITE,URINE NEGATIVE (NEGATIVE); PROTEIN,URINE NEGATIVE (NEGATIVE); URINE SPECIFIC GRAVITY 1.005; UROBILINOGEN,URINE NEGATIVE mg/dL (<2.0)
[2016-09-02 16:24] LABS: URINE BARBITURATES SCREEN NEGATIVE; URINE METHADONE SCREEN NEGATIVE; URINE OPIATES LOW NEGATIVE; URINE PHENCYCLIDINE SCREEN NEGATIVE
== END 2016-09-02 19:29 | disposition home or self-care (01) ==
LOC: LC 14:53
PROVIDERS: ATTEND Obstetrics & Gynecology
PROC: 4A1HXCZ Monitoring of Products of Conception, Cardiac Rate, External Approach (ICD-10-PCS; principal; 2016-09-02)
DX: O47.03 False labor before 37 completed weeks of gestation, third trimester (principal); Z3A.33 33 weeks gestation of pregnancy
CPT/HCPCS: 59025; 76819; 80307; 81001

== ENCOUNTER → 2016-09-06 | Outpatient (CLI) | payer MEDICAID ==
[2016-09-06 14:05] LABS: HEMATOCRIT 39.7 % (36.0-47.0); HEMOGLOBIN 13.4 g/dL (12.0-15.5); HGB HCT DIFFERENCE 0.5; MEAN CORPUSCULAR HEMOGLOBIN 29.2 pg (27.0-33.4); MEAN CORPUSCULAR HGB CONC 33.8 g/dL (32.0-36.0); MEAN CORPUSCULAR VOLUME 87 fl (80-97); RED BLOOD COUNT 4.59 10^6/uL (3.72-5.28); RED CELL DISTRIBUTION WIDTH 13.9 % (11.5-14.0); WHITE BLOOD COUNT 22.4 10^3/uL (4.0-10.5)
[2016-09-06 14:25] LABS: ASPARTATE AMINO TRANSFERASE 13 U/L (14-36); BLOOD UREA NITROGEN 15 mg/dL (7-20); CREATININE RESULT 0.52 mg/dL (0.52-1.25); LDH 447 U/L (313-618)
== END ==
LOC: OD 13:31
PROVIDERS: ATTEND Obstetrics & Gynecology
DX: O16.9 Unspecified maternal hypertension, unspecified trimester (principal)
CPT/HCPCS: 36415; 82565; 83615; 84450; 84520; 85027

== ENCOUNTER 2016-09-16 11:54 | Outpatient (CLI) | payer MEDICAID ==
[2016-09-16 12:40] LABS: APPEARANCE,URINE CLEAR; BILIRUBIN,URINE NEGATIVE (NEGATIVE); GLUCOSE, URINE NEGATIVE (NEGATIVE); KETONES,URINE NEGATIVE (NEGATIVE); LEUKOCYTE ESTERASE,URINE NEGATIVE (NEGATIVE); NITRITE,URINE NEGATIVE (NEGATIVE); PROTEIN,URINE NEGATIVE (NEGATIVE); URINE SPECIFIC GRAVITY 1.006; UROBILINOGEN,URINE NEGATIVE mg/dL (<2.0)
[2016-09-16 12:51] LABS: HEMATOCRIT 38.6 % (36.0-47.0); HEMOGLOBIN 12.9 g/dL (12.0-15.5); HGB HCT DIFFERENCE 0.1; MEAN CORPUSCULAR HEMOGLOBIN 28.7 pg (27.0-33.4); MEAN CORPUSCULAR HGB CONC 33.4 g/dL (32.0-36.0); MEAN CORPUSCULAR VOLUME 86 fl (80-97); RED BLOOD COUNT 4.49 10^6/uL (3.72-5.28); RED CELL DISTRIBUTION WIDTH 13.8 % (11.5-14.0); WHITE BLOOD COUNT 21.4 10^3/uL (4.0-10.5)
[2016-09-16 13:06] LABS: URINE BARBITURATES SCREEN NEGATIVE; URINE METHADONE SCREEN NEGATIVE; URINE OPIATES LOW NEGATIVE; URINE PHENCYCLIDINE SCREEN NEGATIVE
[2016-09-16 13:08] LABS: ALANINE AMINOTRANSFERASE 25 U/L (9-52); ALBUMIN 3.8 g/dL (3.5-5.0); ALKALINE PHOSPHATASE 119 U/L (38-126); ANION GAP 11 (5-19); ASPARTATE AMINO TRANSFERASE 12 U/L (14-36); BILIRUBIN,TOTAL 0.4 mg/dL (0.2-1.3); BLOOD UREA NITROGEN 12 mg/dL (7-20); CARBON DIOXIDE 23 mmol/L (22-30); CHLORIDE 102 mmol/L (98-107); CREATININE RESULT 0.58 mg/dL (0.52-1.25); GLUCOSE 76 mg/dL (75-110); LDH 354 U/L (313-618); POTASSIUM 4.5 mmol/L (3.6-5.0); SODIUM 135.9 mmol/L (137-145); TOTAL PROTEIN 6.3 g/dL (6.3-8.2)
[2016-09-16 13:19] LABS: BASOPHILS % (MANUAL) 0 % (0-2); EOSINOPHILS % (MANUAL) 2 % (0-6); LYMPHOCYTES % (MANUAL) 8 % (13-45); TOTAL CELLS COUNTED 100
[2016-09-16 13:23] LABS: TOXIC GRANULATION SLIGHT
[2016-09-16 13:24] LABS: POLYCHROMASIA SLIGHT
== END 2016-09-16 14:08 | disposition home or self-care (01) ==
LOC: LC 11:54
PROVIDERS: ATTEND Obstetrics & Gynecology
PROC: 4A1HXCZ Monitoring of Products of Conception, Cardiac Rate, External Approach (ICD-10-PCS; principal; 2016-09-16)
DX: O24.419 Gestational diabetes mellitus in pregnancy, unspecified control (principal); O10.913 Unspecified pre-existing hypertension complicating pregnancy, third trimester; Z3A.35 35 weeks gestation of pregnancy
CPT/HCPCS: 36415; 59025; 76819; 80053; 80307; 81001; 83615; 84550; 85025

== ENCOUNTER 2016-09-28 21:22 | Inpatient (IN) | payer MEDICAID ==
[2016-09-28 22:08] LABS: APPEARANCE,URINE SLIGHTLY-CLOUDY; BILIRUBIN,URINE NEGATIVE (NEGATIVE); GLUCOSE, URINE NEGATIVE (NEGATIVE); KETONES,URINE NEGATIVE (NEGATIVE); LEUKOCYTE ESTERASE,URINE NEGATIVE (NEGATIVE); NITRITE,URINE NEGATIVE (NEGATIVE); PROTEIN,URINE NEGATIVE (NEGATIVE); URINE SPECIFIC GRAVITY 1.019; UROBILINOGEN,URINE NEGATIVE mg/dL (<2.0)
[2016-09-28] MEDS ORDERED: RINGERS SOLUTION,LACTATED 1,000 ML IV PRN (22:09)
[2016-09-28] MEDS ORDERED: OXYTOCIN/NORMAL SALINE 1,000 ML IV PRN (22:09)
[2016-09-28] MEDS ORDERED: RINGERS SOLUTION,LACTATED 300 ML IV ONE (22:15)
[2016-09-28] MEDS ORDERED: DINOPROSTONE 10 MG VAGINAL INSERT.SR PV ONE (22:15)
[2016-09-28 22:19] LABS: HEMATOCRIT 35.8 % (36.0-47.0); HEMOGLOBIN 12.1 g/dL (12.0-15.5); HGB HCT DIFFERENCE 0.5; MEAN CORPUSCULAR HEMOGLOBIN 28.6 pg (27.0-33.4); MEAN CORPUSCULAR HGB CONC 33.8 g/dL (32.0-36.0); MEAN CORPUSCULAR VOLUME 85 fl (80-97); RED BLOOD COUNT 4.23 10^6/uL (3.72-5.28); RED CELL DISTRIBUTION WIDTH 14.2 % (11.5-14.0); WHITE BLOOD COUNT 23.2 10^3/uL (4.0-10.5)
[2016-09-28 22:24] LABS: URINE BARBITURATES SCREEN NEGATIVE; URINE METHADONE SCREEN NEGATIVE; URINE OPIATES LOW NEGATIVE; URINE PHENCYCLIDINE SCREEN NEGATIVE
[2016-09-28 23:03] LABS: BASOPHILS % (MANUAL) 0 % (0-2); EOSINOPHILS % (MANUAL) 2 % (0-6); LYMPHOCYTES % (MANUAL) 20 % (13-45); TOTAL CELLS COUNTED 100
[2016-09-28] MEDS ORDERED: DINOPROSTONE 10 MG VAGINAL INSERT.SR ONE (23:03)
[2016-09-28 23:06] LABS: ANISOCYTOSIS SLIGHT; PLATELET CLUMPS PRESENT; POLYCHROMASIA 1+
[2016-09-29 03:23] LABS: AMNISURE (ROM) NEGATIVE (NEGATIVE)
--- NOTE | 2016-09-29 10:35 | L&D Progress Notes ---
PROGRESS NOTES Datetime Report Generated by CPN: 09/29/2016 10:35 PROGRESS NOTE Plan: Continue Present Management; Cervical Ripening Informed Consent Obtained: Vaginal Delivery; Risks, Benefits and Alternatives Discussed Vital Signs : Reviewed; Within Normal Limits Comment: resting in bed, hsb at . [facility] bk, has not eaten since last night, peralta severe anxiety and on multiple medications, monitor strip remains unchanged since admission, moderate variability, difficult to trace, anterior placenta, will place FSE after cervidil is removed, obesity FETUS A Monitoring: External US SIGNATURE Assignment: Maritza Storm MD Signature: with User ID: [email or web address] : with User ID: Bandar
[2016-09-29] MEDS ORDERED: MISOPROSTOL 0.1 MG TABLET PO ONE ×2 (13:18→18:16)
[2016-09-29] MEDS ORDERED: MISOPROSTOL 0.1 MG TABLET ONE ×3 (13:28→22:25)
[2016-09-29] MEDS: MISOPROSTOL 0.1 MG TABLET PO SCH (22:41)
[2016-09-29] MEDS: MISOPROSTOL 0.1 MG TABLET PV SCH (22:42)
[2016-09-30] MEDS ORDERED: MISOPROSTOL 0.1 MG TABLET ONE ×2 (02:30→06:31)
[2016-09-30] MEDS: MISOPROSTOL 0.1 MG TABLET PV SCH ×3 (02:34→18:47)
[2016-09-30] MEDS: MISOPROSTOL 0.1 MG TABLET PO SCH ×3 (02:34→18:47)
[2016-09-30] MEDS ORDERED: OXYTOCIN/NORMAL SALINE 1,000 ML IV PRN (10:49)
[2016-09-30] MEDS ORDERED: OXYTOCIN/NORMAL SALINE 20 UNIT/1,000 ML RTUINJ ONE (10:49)
[2016-09-30] MEDS ORDERED: EPHEDRINE SULFATE INJ 50 MG/1 ML AMPULE ONE (13:37)
[2016-09-30] MEDS ORDERED: FENTANYL/BUPIVACAINE/NS/PF 200 MCG/100 ML RTUINJ EPI ONE ×2 (13:38→22:48)
[2016-09-30] MEDS ORDERED: BUPIVACAINE HCL 0.25 % INJ/PF (2.5 MG/1 ML) 30 ML VIAL ONE (13:38)
[2016-09-30] MEDS ORDERED: HYDRALAZINE HCL INJ/PF 20 MG/1 ML SDV ONE (14:03)
[2016-09-30 15:22] LABS: HEMATOCRIT 37.4 % (36.0-47.0); HEMOGLOBIN 12.5 g/dL (12.0-15.5); HGB HCT DIFFERENCE 0.1; MEAN CORPUSCULAR HEMOGLOBIN 28.2 pg (27.0-33.4); MEAN CORPUSCULAR HGB CONC 33.4 g/dL (32.0-36.0); MEAN CORPUSCULAR VOLUME 84 fl (80-97); RED BLOOD COUNT 4.44 10^6/uL (3.72-5.28); RED CELL DISTRIBUTION WIDTH 14.3 % (11.5-14.0); WHITE BLOOD COUNT 21.6 10^3/uL (4.0-10.5)
[2016-09-30 15:41] LABS: BASOPHILS % (MANUAL) 0 % (0-2); EOSINOPHILS % (MANUAL) 0 % (0-6); LYMPHOCYTES % (MANUAL) 8 % (13-45); TOTAL CELLS COUNTED 100
[2016-09-30 15:42] LABS: ANISOCYTOSIS SLIGHT; PLATELET CLUMPS PRESENT; POLYCHROMASIA SLIGHT
[2016-09-30 18:29] LABS: ALANINE AMINOTRANSFERASE 23 U/L (9-52); ALBUMIN 3.3 g/dL (3.5-5.0); ALKALINE PHOSPHATASE 139 U/L (38-126); ANION GAP 12 (5-19); ASPARTATE AMINO TRANSFERASE 13 U/L (14-36); BILIRUBIN,DIRECT 0.2 mg/dL (0.0-0.4); BILIRUBIN,TOTAL 0.5 mg/dL (0.2-1.3); BLOOD UREA NITROGEN 9 mg/dL (7-20); CALCIUM 9.9 mg/dL (8.4-10.2); CARBON DIOXIDE 23 mmol/L (22-30); CHLORIDE 105 mmol/L (98-107); CREATININE RESULT 0.53 mg/dL (0.52-1.25); GLUCOSE 83 mg/dL (75-110); LDH 361 U/L (313-618); TOTAL PROTEIN 6.2 g/dL (6.3-8.2); URIC ACID 5.2 mg/dL (2.5-6.2)
[2016-10-01] MEDS ORDERED: DIPHENHYDRAMINE HCL 50 MG/ML VIAL IV ONE (01:11)
[2016-10-01] MEDS ORDERED: DIPHENHYDRAMINE HCL 50 MG/ML VIAL ONE ×2 (01:11→09:40)
[2016-10-01] MEDS ORDERED: CEFAZOLIN 2 GM/D5W RTU 2 GM/50 ML RTUPB IV ONE (06:30)
[2016-10-01] MEDS ORDERED: CITRIC ACID/SODIUM CITRATE ORAL SOLN 15 ML UDCUP ONE (06:30)
[2016-10-01] MEDS ORDERED: LIDOCAINE 2% INJ-PF (20 MG/ML) 10 ML AMPUL ONE (07:12)
[2016-10-01] MEDS ORDERED: FENTANYL CITRATE INJ/PF 100 MCG/2 ML AMPUL ONE (07:16)
[2016-10-01] MEDS ORDERED: OXYTOCIN 10 UNIT/ML VIAL ONE (07:16)
[2016-10-01] MEDS ORDERED: PROPOFOL INJ 200 MG/20 ML VIAL IV ONE ×2 (07:16→07:57)
[2016-10-01] MEDS ORDERED: MIDAZOLAM 2 MG/2 ML INJ ONE (07:17)
[2016-10-01] MEDS ORDERED: EPHEDRINE SULFATE INJ 50 MG/1 ML AMPULE ONE (07:17)
[2016-10-01] MEDS ORDERED: ONDANSETRON HCL INJ/PF 4 MG/2 ML SDV ONE (07:57)
[2016-10-01] MEDS ORDERED: MORPHINE SULFATE 10 MG/ML INJ ONE (07:57)
[2016-10-01] MEDS ORDERED: OXYTOCIN/NORMAL SALINE 20 UNIT/1,000 ML RTUINJ ONE ×2 (08:09→09:54)
[2016-10-01] MEDS ORDERED: KETOROLAC TROMETHAMINE INJ/PF 30 MG/1 ML SDV ONE (08:31)
[2016-10-01] MEDS ORDERED: ACETAMINOPHEN 100 ML IV ONE (08:31)
[2016-10-01] MEDS ORDERED: RINGERS SOLUTION,LACTATED 1,000 ML IV PRN (08:32)
[2016-10-01] MEDS ORDERED: ACETAMINOPHEN 325 MG TABLET PO PRN (08:32)
[2016-10-01] MEDS ORDERED: DIPH/PERTUSS(ACELL)/TETANUS VAC/PF 0.5 ML SYR (>=10YO) IM PRN (08:32)
[2016-10-01] MEDS ORDERED: MEASLES,MUMPS&RUBELLA VACC/PF 0.5 ML VIAL SUBCUT PRN (08:32)
[2016-10-01] MEDS ORDERED: PROMETHAZINE HCL INJ 25 MG/1 ML VIAL IV PRN (08:32)
[2016-10-01] MEDS ORDERED: AMPICILLIN SOD/SULBACTAM 3 GM VIAL ONE (08:32)
[2016-10-01] MEDS ORDERED: OXYTOCIN/NORMAL SALINE 1,000 ML IV PRN (08:32)
[2016-10-01] MEDS ORDERED: OXYCODONE-ACETAMINOPHEN 5-325 MG TABLET PO PRN (08:32)
[2016-10-01] MEDS ORDERED: SIMETHICONE 80 MG TAB.CHEW PO PRN (08:32)
--- NOTE | 2016-10-01 09:23 | Delivery Summary ---
Del Sum A-C Datetime Report Generated by CPN: 10/01/2016 09:22 DELIVERY PERSONNEL DELIVERY PERSONNEL: [phone] Delivery Doctor:: Maritza Storm MD CUSTOM GRINDER:: Reese Pozo CRNA Labor and Delivery Nurse:: Tamar Lincoln RN Truck Driver Supervisor:: Suzanne Rai RN Neonatal Nurse Practitioner:: MATHEUS Bettencourt Nursery Nurse:: Toshia Perkins RN Nursery Nurse:: Peggy Catherine RN Tow Truck Dispatcher/RASCHEL KNITTING MACHINE OPERATOR: ST Lance Tow Truck Dispatcher/RASCHEL KNITTING MACHINE OPERATOR: Shalonda Augustin, SENIOR CLINICAL DATA ANALYST MATERNAL INFORMATION Delivery Anesthesia: Spinal Medications After Delivery: Pitocin Bolus-Please Comment Meds After Delivery Comment: Pitocin 20 units in 1000 mL NS Estimated Blood Loss (ml): 600 Maternal Complications: Other Other Maternal Complications: GDM, Chronic HTN LABOR SUMMARY EDC: 10/15/2016 00:00 No. Babies in Womb: 1 Attempted: No Labor Anesthesia: Epidural LABOR INFORMATION Reason for Induction: Chronic Hypertension; Maternal Diabetes Onset of Labor: 09/30/2016 19:00 Cervical Ripening Agents: Cervidil; Cytotec @ Oxytocin: Induction Group B Beta Strep: Negative Antibiotics # of Doses: 0 Steroids Given: None Reason Steroids Not Administered: Not Applicable MEMBRANES Membranes Rupture Method: Artificial Rupture of Membranes: 09/30/2016 19:46 Length of Rupture (hr): 12.05 Amniotic Fluid Color: Clear Amniotic Fluid Amount: Moderate Amniotic Fluid Odor: Normal STAGES OF LABOR Stage 3 hr: 0 Stage 3 min: 1 Total Time in Labor hr: 12 Total Time in Labor min: 50 VAGINAL DELIVERY Episiotomy: None Laceration Extension: N/A Laceration Type: None Sponge Count Correct: N/A Sharps Count Correct: N/A CSECTION DELIVERY Primary Indication: Arrest of Descent Secondary Indication: Secondary Arrest of Dilatation CSection Urgency: Non-Scheduled CSection Incidence: Primary Labor: Labor Elective: Nonelective CSection Incision: Lower Uterine Transverse BABY A INFORMATION Delivery Date/Time: 10/01/2016 07:49 Method of Delivery: Born in Route : No : N/A Forceps: N/A Vacuum Extraction: N/A Shoulder Dystocia : No PRESENTATION/POSITION BABY A Presentation: Cephalic Cephalic Presentation: Vertex Vertex Position: Left Occipital Anterior Breech Presentation: N/A PLACENTA INFORMATION BABY A Placenta Delivery Time : 10/01/2016 07:50 Placenta Method of Delivery: Spontaneous Placenta Status: Delivered SCORES BABY A Heart Rate 1 min: >100 bpm Resp Effort 1 min: Good Cry Reflex Irritability 1 min: Grimace Muscle Tone 1 min: Some Flexion of Extremities Color 1 min: Body Brantley, Extremities Blue Resuscitation Effort 1 min: Tactile Stimulation SCORE 1 MIN: 7 Heart Rate 5 min: >100 bpm Resp Effort 5 min: Good Cry Reflex Irritability 5 min: Cough or Sneeze or Pulls Away Muscle Tone 5 min: Active Motion Color 5 min: Body Brantley, Extremities Blue Resuscitation Effort 5 min: N/A SCORE 5 MIN: 9 Resuscitation Effort 10 min: N/A INFORMATION BABY A Gestational Age at Delivery: 38.0 Gestational Status: Early Term- 37- 38.6 Weeks Infant Outcome : Liveborn Infant Condition : Stable Sex: Female IDENTIFICATION BABY A Verification Date/Time: 10/01/2016 07:18 ID Band Number: [id number] Mother's Name Verified: Yes Infant RN Verifying Infant: Jess Rai, RN Additional Verifying Personnel: S. Camp, RN WEIGHT/LENGTH BABY A Infant Birthweight (gm): 3035 Weight (lb): 6 Weight (oz): 11 Length (in): 19.00 Length (cm): 48.26 CORD INFORMATION BABY A No. Cord Vessels: 3 Nuchal Cord : N/A Cord Blood Taken: Yes-For Storage (Mom's Blood type +) Suction: Mouth; Nose ASSESSMENT BABY A Skin to Skin: No Skin to Skin Time (min): in pacu BABY B INFORMATION : N/A
[2016-10-01] MEDS: HYDROMORPHONE HCL INJ/PF 2 MG/ML AMPULE IV PRN ×3 (09:32→20:37)
[2016-10-01] MEDS ORDERED: HYDROMORPHONE HCL INJ/PF 2 MG/ML AMPULE ONE (09:34)
--- NOTE | 2016-10-01 09:43 | OPERATIVE REPORT E ---
Operative Report NAME: MAGI PALACIOS : 1985 AGE: 31Y DATE OF SURGERY: 10/01/2016 ROOM: LR200 PREOPERATIVE DIAGNOSES: 1. Intrauterine at 39 weeks and 0 days. 2. Failed induction. 3. Failure to progress. POSTOPERATIVE DIAGNOSIS: 1. Intrauterine at 39 weeks and 0 days. 2. Failed induction. 3. Failure to progress. SURGEON: TAE PAL M.D. ANESTHESIA: Dr. Frazier with an epidural. FINDINGS: A female infant with cephalic presentation, 12/12, weight 6 pounds 11 ounces. ESTIMATED BLOOD LOSS: 600 mL. SPECIMENS REMOVED: None. PROCEDURE: Low-transverse hysterotomy section. PROCEDURE IN DETAIL: Patient was taken to the operating room, prepared and draped in a normal sterile fashion in a supine position with a leftward tilt. Transverse skin incision was made with the scalpel and carried through the underlying layer of fascia with the same scalpel. The fascia was excised in a midline, extended laterally with Gomez's. The fascia was dissected from the rectus muscles sharply with Gomez scissors and the rectus muscle was divided. The peritoneal cavity was entered sharply with Metzenbaum's. The peritoneal cavity was then divided with good visualization of the bladder and the uterus. The bladder blade was inserted and the hysterotomy was nicked with the scalpel and extended laterally with surgeon finger fracture. The infant was then delivered atraumatically. The nose and mouth were suctioned with a suction bulb and the cord was clamped and cut and the infant was handed off to awaiting pediatricians. The cord blood was collected and the placenta was removed manually. The uterus was exteriorized and cleared of clots and debris. The hysterotomy was closed with 0 Monocryl in a running locked fashion. A second layer of the same suture was used for imbricate to ensure hemostasis. The uterus was returned to the abdomen. The peritoneal cavity was cleared of clots and debris and the rectus muscle and peritoneum were reapproximated with a mattress stitch of 2-0 Chromic. The fascia was closed with 0 Vicryl. The subcutaneous layer was closed with plain catgut and the skin was closed with 4-0 Vicryl. Patient tolerated the procedure well. Sponge, lap, and needle counts were correct x2 and the patient was taken to recovery in stable condition. DICTATING PHYSICIAN: TAE PAL M.D. [id number] PHY#: [id number] ID: [id number] JOB#: [id number] ACCT: [id number] cc:TAE PAL M.D. > DICTATING PHYSICIAN: TAE PAL M.D. [id number] PHY#: [id number] ID: [id number] JOB#: [id number] ACCT: [id number] cc:TAE PAL M.D. >
[2016-10-01] MEDS ORDERED: OXYCODONE HCL IR 5 MG TABLET PO ONE (11:30)
[2016-10-01] MEDS ORDERED: AMPICILLIN SOD/SULBACTAM 3 GM VIAL IV SCH (14:00)
[2016-10-01] MEDS ORDERED: RINGERS SOLUTION,LACTATED 1,000 ML IV ONE (14:00)
[2016-10-01] MEDS ORDERED: AMPICILLIN SODIUM/SULBACTAM NA 3 GM in NORMAL SALINE 100 ML IV ONE (16:00)
[2016-10-01] MEDS ORDERED: AMPICILLIN SODIUM/SULBACTAM NA 3 GM in NORMAL SALINE 100 ML IV SCH (18:00)
[2016-10-01] MEDS ORDERED: KETOROLAC TROMETHAMINE INJ/PF 30 MG/1 ML SDV IV SCH (18:00)
[2016-10-01] MEDS ORDERED: METOPROLOL SUCCINATE 50 MG TAB.SR.24H PO SCH (18:00)
[2016-10-01] MEDS: BUSPIRONE HCL 10 MG TABLET PO SCH (22:55)
[2016-10-01] MEDS: VENLAFAXINE HCL 75 MG TABLET PO SCH (22:56)
[2016-10-01] MEDS: METOPROLOL SUCCINATE 50 MG TAB.SR.24H PO SCH (22:56)
[2016-10-01] MEDS: CLONIDINE HCL 0.1 MG TABLET PO SCH (22:57)
[2016-10-01] MEDS: OXYCODONE-ACETAMINOPHEN 5-325 MG TABLET PO PRN (23:10)
[2016-10-02] MEDS: OXYCODONE-ACETAMINOPHEN 5-325 MG TABLET PO PRN ×5 (04:12→21:34)
[2016-10-02] MEDS: BUSPIRONE HCL 10 MG TABLET PO SCH ×3 (06:15→22:47)
[2016-10-02 07:14] LABS: HEMATOCRIT 18.9 % (36.0-47.0); HGB HCT DIFFERENCE -0.3; MEAN CORPUSCULAR HEMOGLOBIN 28.5 pg (27.0-33.4); MEAN CORPUSCULAR HGB CONC 33.1 g/dL (32.0-36.0); MEAN CORPUSCULAR VOLUME 86 fl (80-97); RED BLOOD COUNT 2.19 10^6/uL (3.72-5.28); RED CELL DISTRIBUTION WIDTH 14.4 % (11.5-14.0); WHITE BLOOD COUNT 19.4 10^3/uL (4.0-10.5)
[2016-10-02 07:36] LABS: HEMOGLOBIN 6.2 g/dL (12.0-15.5)
[2016-10-02] MEDS ORDERED: VENLAFAXINE HCL 150 MG PO SCH (08:00)
[2016-10-02] MEDS: VENLAFAXINE HCL 75 MG TABLET PO SCH ×2 (08:20→23:00)
[2016-10-02] MEDS: IBUPROFEN 800 MG TABLET PO SCH ×3 (08:22→21:33)
--- NOTE | 2016-10-02 08:55 | PDOC PROGRESS REPORT ---
Subjective-OB Subjective: Post Delivery Day: 31 year old. Denies any needs at this time. Denies any dizziness or lightheadedness when ambulating. Physical Exam (OB) Vital Signs: Temp Pulse Resp BP Pulse Ox 98.1 F 94 19 101/49 L 95 10/02/16 03:59 10/02/16 03:59 10/02/16 03:59 10/02/16 03:59 10/02/16 03:59 Intake & Output 10/01/16 10/02/16 10/03/16 06:59 06:59 06:59 Intake Total 450 Output Total 1480 Balance -1030 - Dressing Removed: No - opsite dressing in place Incision: Dressing Closure Type: Sutures - Lochia Lochia Amount: Scant < 10 ml Lochia Color: Rubra/Red - Abdomen Description: Tender, Soft Hernia Present: No Bowel Sounds: Normoactive Flatus Presence: Present Stool: No Fundal Description: Firm, Midline Describe if Not Midline: Deviates to the left Fundal Height: u/u - u/2 Objective-Diagnostic Laboratory: 10/02/16 06:03 09/30/16 15:08 10/02/16 06:03 WBC 19.4 H RBC 2.19 L Hgb 6.2 L D Hct 18.9 L MCV 86 MCH 28.5 MCHC 33.1 RDW 14.4 H Plt Count 196
[2016-10-02] MEDS: DOCUSATE SODIUM 100 MG CAPSULE PO SCH ×2 (09:25→17:27)
[2016-10-02] MEDS: PRENATAL VITAMIN W-O CA NO5/FE FUMARATE/FA CAPSULE PO SCH (09:29)
[2016-10-02] MEDS: METOPROLOL SUCCINATE 50 MG TAB.SR.24H PO SCH ×2 (09:29→22:46)
[2016-10-02] MEDS: CLONIDINE HCL 0.1 MG TABLET PO SCH ×2 (09:30→22:45)
[2016-10-02] MEDS: NITROFURANTOIN MONOHYD/M-CRYST 100 MG CAPSULE PO SCH (09:31)
[2016-10-02] MEDS ORDERED: IBUPROFEN 800 MG TABLET PO SCH (12:00)
[2016-10-02 13:39] LABS: ABSOLUTE EOSINOPHILS # (AUTO) 0.1 10^3/uL (0.0-0.6); ABSOLUTE LYMPHOCYTES (AUTO) 2.4 10^3/uL (0.5-4.7); ABSOLUTE NEUT (AUTO) 15.5 10^3/uL (1.7-8.2); BASOPHILS % (AUTO) 0.2 % (0-2); EOSINOPHILS % (AUTO) 0.5 % (0-6); HGB HCT DIFFERENCE 0.4; LYMPHOCYTES % (AUTO) 12.5 % (13-45); MEAN CORPUSCULAR HEMOGLOBIN 29.3 pg (27.0-33.4); MEAN CORPUSCULAR HGB CONC 34.4 g/dL (32.0-36.0); MEAN CORPUSCULAR VOLUME 85 fl (80-97); RED BLOOD COUNT 1.99 10^6/uL (3.72-5.28); RED CELL DISTRIBUTION WIDTH 14.2 % (11.5-14.0); SEGMENTED NEUTROPHILS % (AUTO) 81.8 % (42-78)
[2016-10-02 13:51] LABS: HEMOGLOBIN 5.8 g/dL (12.0-15.5)
[2016-10-02] MEDS ORDERED: DIPHENHYDRAMINE HCL 25 MG CAPSULE PO PRN (14:53)
[2016-10-03] MEDS: OXYCODONE-ACETAMINOPHEN 5-325 MG TABLET PO PRN ×3 (01:33→11:56)
[2016-10-03] MEDS: IBUPROFEN 800 MG TABLET PO SCH ×3 (03:36→16:08)
[2016-10-03 05:17] LABS: HEMATOCRIT 23.5 % (36.0-47.0); HGB HCT DIFFERENCE 0.2; MEAN CORPUSCULAR HEMOGLOBIN 28.9 pg (27.0-33.4); MEAN CORPUSCULAR HGB CONC 33.7 g/dL (32.0-36.0); MEAN CORPUSCULAR VOLUME 86 fl (80-97); RED BLOOD COUNT 2.74 10^6/uL (3.72-5.28); RED CELL DISTRIBUTION WIDTH 14.1 % (11.5-14.0); WHITE BLOOD COUNT 18.4 10^3/uL (4.0-10.5)
[2016-10-03 05:22] LABS: HEMOGLOBIN 7.9 g/dL (12.0-15.5)
[2016-10-03] MEDS: BUSPIRONE HCL 10 MG TABLET PO SCH ×2 (06:29→13:58)
[2016-10-03] MEDS: VENLAFAXINE HCL 75 MG TABLET PO SCH (08:08)
--- NOTE | 2016-10-03 09:22 | PDOC PROGRESS REPORT ---
Subjective-OB Subjective: Post Delivery Day: 31 year old. Denies any needs at this time. Ready to go home. Physical Exam (OB) Vital Signs: Temp Pulse Resp BP Pulse Ox 97.6 F 81 18 136/76 H 98 10/03/16 07:40 10/03/16 07:40 10/03/16 07:40 10/03/16 07:40 10/03/16 07:40 Intake & Output 10/02/16 10/03/16 10/04/16 06:59 06:59 06:59 Intake Total 450 1320 Output Total 1480 Balance -1030 1320 - PIH/Pre-Eclampsia Clonus: Negative - Dressing Removed: No Incision: Dressing Closure Type: Sutures - Lochia Lochia Amount: Scant < 10 ml Lochia Color: Rubra/Red - Abdomen Description: Tender, Soft, Round Hernia Present: No Bowel Sounds: Normoactive Flatus Presence: Present Stool: No Fundal Description: Firm, Midline Describe if Not Midline: Deviates to the left Fundal Height: u/u - u/2 Objective-Diagnostic Laboratory: 10/03/16 04:54 09/30/16 15:08 10/02/16 10/02/16 10/03/16 12:55 15:30 04:54 WBC 19.0 H 18.4 H RBC 1.99 L 2.74 L Hgb 5.8 L 7.9 L D Hct 17.0 L 23.5 L MCV 85 86 MCH 29.3 28.9 MCHC 34.4 33.7 RDW 14.2 H 14.1 H Plt Count 177 176 Seg Neutrophils % 81.8 H Lymphocytes % 12.5 L Monocytes % 5.0 Eosinophils % 0.5 Basophils % 0.2 Absolute Neutrophils 15.5 H Absolute Lymphocytes 2.4 Absolute Monocytes 1.0 Absolute Eosinophils 0.1 Absolute Basophils 0.0 Blood Type A POSITIVE Antibody Screen NEGATIVE
--- NOTE | 2016-10-03 09:41 | PDOC DISCHARGE SUMMARY ---
Final Diagnosis Discharge Date: 10/03/16 Discharge Data - Discharge Medication Home Medications: Nitrofurantoin Monohyd/M-Cryst [Macrobid 100 mg Capsule] 50 mg pe PO DAILY 07/22 Buspirone HCl [Buspar 15 mg Tablet] 15 mg PO TID 09/28/16 Clonidine HCl [Catapres 0.1 mg Tablet] 0.1 mg PO Q12 #0 tablet 10/03/16 Docusate Sodium [Colace 100 mg Capsule] 100 mg PO BID #30 capsule 10/03/16 Ferrous Sulfate 325 mg PO TID #90 tablet. 10/03/16 Ibuprofen [Motrin 800 mg Tablet] 800 mg PO Q6A #30 tablet 10/03/16 Metoprolol Succinate [Toprol Xl 50 mg Tab.sr] 100 mg PO Q12 #0 tab.sr.24h Oxycodone HCl/Acetaminophen [Percocet 5-325 mg Tablet] 1 tab PO Q4HP PRN #20 tablet 10/03/16 Venlafaxine HCl [Effexor 75 mg Tablet] 75 mg PO QHS #0 tablet 10/03/16 Venlafaxine HCl [Effexor 75 mg Tablet] 150 mg PO QAM #0 tablet 10/03/16 Gestational Age: 38.0 wks Reason(s) for Admission: Induction of Labor Procedures: Ultrasound Intrapartum Procedure(s): : Low Cervical, Transverse - Data Baby 1 Female at 1 minute: 7 at 5 minutes: 9 Weight: 3.033 kg Home with Mother: Yes Complications: No - Diagnosis Test Laboratory: Temp Pulse Resp BP Pulse Ox 97.6 F 81 18 136/76 H 98 10/03/16 07:40 10/03/16 07:40 10/03/16 07:40 10/03/16 07:40 10/03/16 07:40 09/28/16 09/28/16 09/30/16 21:55 22:00 15:15 RBC 4.23 4.44 Hgb 12.1 12.5 Hct 35.8 L 37.4 Urine Opiates Screen NEGATIVE 10/02/16 10/02/16 10/03/16 06:03 12:55 04:54 RBC 2.19 L 1.99 L 2.74 L Hgb 6.2 L D 5.8 L 7.9 L D Hct 18.9 L 17.0 L 23.5 L Urine Opiates Screen - Discharge information/Instructions Discharge Activity: Activity As Tolerated, Balance Activity w/Rest, No Lifting Over 10 Pounds, No Lifting/Push/Pulling, Pelvic Rest, Slowly Increase Activity, No tub bath Discharge Diet: Regular Disposition: HOME, SELF-CARE Follow up with: [facility] in: 1, Weeks
[2016-10-03] MEDS: PRENATAL VITAMIN W-O CA NO5/FE FUMARATE/FA CAPSULE PO SCH (10:41)
[2016-10-03] MEDS: DOCUSATE SODIUM 100 MG CAPSULE PO SCH ×2 (10:41→17:27)
[2016-10-03] MEDS: METOPROLOL SUCCINATE 50 MG TAB.SR.24H PO SCH (10:42)
[2016-10-03] MEDS: CLONIDINE HCL 0.1 MG TABLET PO SCH (10:42)
[2016-10-03] MEDS: NITROFURANTOIN MONOHYD/M-CRYST 100 MG CAPSULE PO SCH (10:43)
[2016-10-03 13:23] VITALS: BP 139/72
--- NOTE | 2016-10-05 12:47 | Admission Physical ---
Datetime Report Generated by CLARISSE: 10/05/2016 12:46 Chief Complaint: Scheduled Induction of Labor Indication for Induction: Chronic Hypertension Admit Plan: Admit to Unit; Initiate Labor Induction Protocol Medication Allergies: Yes Medication Allergies: lisinopril (09/28/2016); erythromycin base (09/28/2016); mirtazapine (09/28/2016) Medication Allergies: lisinopril (09/16/2016); erythromycin base (09/16/2016); mirtazapine (09/16/2016) Medication Allergies: lisinopril (09/02/2016); erythromycin base (09/02/2016); mirtazapine (09/02/2016) Medication Allergies: lisinopril (08/03/2016); erythromycin base (08/03/2016); mirtazapine (08/03/2016) Medication Allergies: lisinopril (07/22/2016); erythromycin base (07/22/2016); mirtazapine (07/22/2016) Medication Allergies: lisinopril (04/11/2016); erythromycin base (04/11/2016); mirtazapine (04/11/2016) Latex: No Latex Allergies : 2 Para: 0 Para: 0 Para: 0 Term: 0 : 0 SAB: 0 IAB: 1 Ectopic: 0 Livin Cesareans: 0 VBACs: 0 Multiple Births: 0 Rh Sensitization: No Incompetent Cervix: No SANTIAGO: No Infertility: No ART Treatment: No Uterine Anomaly: No Hx Previous C/S: No Macrosomia: No Hx Loss/Stillborn: No PIH: No Hx : No Placenta Previa/Abruption: No Depression/PP Depression: No PTL/PROM: Yes Post Hemorrhage: No Current Procedures: Ultrasound; NST Alcohol: Yes Marijuana : No Cocaine: No Other Illicit Drugs: No Cigarettes: Current Some Day Smoker. [id number] Cigarette Frequency: 5 - 10 per day Blood Transfusion: No Pulmonary Disease (Asthma, TB): No Breast Disease: No Hypertension: Yes Reinforcing Bar Setter Surgery: No Heart Disease: No Hosp/Surgery: Yes Autoimmune Disorder: No Anesthetic Complications: No Kidney Disease: Yes Abnormal Pap Smear: No Neuro/Epilepsy: No Psychiatric Disorders: Yes Other Medical Diseases: No Hepatitis/Liver Disease: No Significant Family History: No Varicosities/Phlebitis: No Trauma/Violence : No Thyroid Dysfunction: No Medical History Comments: htn: chronic htn, on labetalol and clonidine kidney: freq UTIs, on macrobid suppresion, "short" urethra psych: severe anxiety, depression GERD surgical: ankle, wisdom teeth Gonorrhea: No Genital Herpes: No Chlamydia: Yes Tuberculosis: No Syphilis: No Hepatitis: No HIV/AIDS Exposure: No Rash or Viral Illness: No HPV: No Infectious History Comments: chlamydia 2013 General: Normal HEENT: Normal Neurologic: Normal Thyroid: Normal Heart: Normal Lungs: Normal Breast: Deferred Back: Normal Abdomen: Normal Genitourinary Exam: Normal Extremities: Normal DTRs: Normal Pelvic Type: Adequate Vital Signs: Reviewed; Within Normal Limits Details Vital Signs: except for mild range BPs Monitoring: External US FHR- Baseline: 125 Variability: Moderate 6-25bpm Accelerations: 15X15 Decelerations: None FHR Category: Category I Admit Comment: 31yo at 37+5ega presents for IOL due to GHTN. c/b early PPROM at 13wks with positive amnisure and anhydramnios then with reaccumulation of fluid approx 3wks later. Pt with Severe anxiety and on Buspar, Clonidine and Effexor. Will need meds continued after delivery. Cvx unfavorable now will need cervidil for cervical ripening. Anticipate . Pain Management: Epidural Feeding Preference: Breast Benefit of Breast Feed Discussed: Yes Circumcision: N/A Informed Consent Obtained: Vaginal Delivery; Risks, Benefits and Alternatives Discussed Signature: with User ID: [email or web address]
== END 2016-10-03 18:32 | disposition home or self-care (01) | DRG 765 ==
LOC: LR 21:22 → 2S 10-01 10:18
PROVIDERS: ADMIT Student in an Organized Health Care Education/Training Program; ATTEND Student in an Organized Health Care Education/Training Program
PROC: 4A1HXCZ Monitoring of Products of Conception, Cardiac Rate, External Approach (ICD-10-PCS; 2016-09-28)
PROC: 3E0P7GC Introduction of Other Therapeutic Substance into Female Reproductive, Via Natural or Artificial Opening (ICD-10-PCS; 2016-09-28)
PROC: 3E033VJ Introduction of Other Hormone into Peripheral Vein, Percutaneous Approach (ICD-10-PCS; 2016-09-30)
PROC: 10D00Z1 Extraction of Products of Conception, Low, Open Approach (ICD-10-PCS; principal; 2016-10-01)
PROC: 30233N1 Transfusion of Nonautologous Red Blood Cells into Peripheral Vein, Percutaneous Approach (ICD-10-PCS; 2016-10-02)
DX: O62.2 Other uterine inertia (principal); O10.92 Unspecified pre-existing hypertension complicating childbirth; N39.0 Urinary tract infection, site not specified; Z68.42 Body mass index [BMI] 45.0-49.9, adult; O61.0 Failed medical induction of labor; O99.62 Diseases of the digestive system complicating childbirth; K21.9 Gastro-esophageal reflux disease without esophagitis; Z3A.38 38 weeks gestation of pregnancy; Z37.0 Single live birth; O99.334 Smoking (tobacco) complicating childbirth; F17.210 Nicotine dependence, cigarettes, uncomplicated; O99.344 Other mental disorders complicating childbirth; F41.9 Anxiety disorder, unspecified; F32.9 Major depressive disorder, single episode, unspecified; O99.214 Obesity complicating childbirth; O24.429 Gestational diabetes mellitus in childbirth, unspecified control; Z79.899 Other long term (current) drug therapy; Z87.440 Personal history of urinary (tract) infections
CPT/HCPCS: 1961; 36415; 36430; 80053; 80307; 81001; 82962; 83615; 84112; 84550; 85025; 85027; 86592; 86850; 86900; 86901; 86920; 94799; J0131; J0295; J0360; J0690; J1170; J1200; J1885; J2250; J2270; J2405; J2590; J2704; J3010; J3490; P9016

== ENCOUNTER 2017-01-15 06:35 | Emergency (ER) | payer MEDICAID ==
[2017-01-15] MEDS ORDERED: LORAZEPAM 1 MG TABLET PO ONE (07:31)
--- NOTE | 2017-01-15 07:35 | ER Document Report ---
ED General - General Chief Complaint: Psych Problem Stated Complaint: PSYCH EVALUATION Time Seen by Provider: 01/15/17 07:19 TRAVEL OUTSIDE OF THE [place]. IN LAST 30 DAYS: No - HPI Patient complains to provider of: Anxiety and depression Notes: Unfortunate female with lengthy history of depression and anxiety presents after being kicked out of her apartment yesterday. Her fianc her new baby are now questionably home was going to be moving in with her mother and father or another family member. Denies suicidal ideation or homicidal ideation. Does have outpatient follow-up with a psychiatrist but unable to get them today. Psychiatrist will see patient on Tuesday. - Related Data Allergies/Adverse Reactions: erythromycin base Allergy (Verified 09/28/16 21:43) lisinopril Allergy (Verified 09/28/16 21:43) mirtazapine [From Remeron] Allergy (Verified 09/28/16 21:43) Past Medical History - Social History Smoking Status: Unknown if Ever Smoked Family History: Reviewed & Not Pertinent Patient has suicidal ideation: No Patient has homicidal ideation: Yes - Past Medical History Cardiac Medical History: Reports: Hx Hypertension Renal/ Medical History: Denies: Hx Peritoneal Dialysis Past Surgical History: Reports: Hx Oral Surgery, Hx Orthopedic Surgery - Immunizations Hx Diphtheria, Pertussis, Tetanus Vaccination: Yes Review of Systems - Review of Systems Constitutional: No symptoms reported EENT: No symptoms reported Cardiovascular: No symptoms reported Respiratory: No symptoms reported Gastrointestinal: No symptoms reported Genitourinary: No symptoms reported Female Genitourinary: No symptoms reported Musculoskeletal: No symptoms reported Skin: No symptoms reported Hematologic/Lymphatic: No symptoms reported Neurological/Psychological: Depression, Anxiety Physical Exam - Vital signs Vitals: Temp Pulse Resp BP Pulse Ox 98 F 93 20 169/138 H 98 01/15/17 06:46 01/15/17 06:46 01/15/17 06:46 01/15/17 06:46 01/15/17 06:46 Interpretation: Normal - General General appearance: Appears well, Alert - HEENT Head: Normocephalic, Atraumatic Eyes: Normal Pupils: PERRL - Respiratory Respiratory status: No respiratory distress Chest status: Nontender Breath sounds: Normal Chest palpation: Normal - Cardiovascular Rhythm: Regular Heart sounds: Normal auscultation Murmur: No - Abdominal Inspection: Normal Distension: No distension Bowel sounds: Normal Tenderness: Nontender Organomegaly: No organomegaly - Back Back: Normal, Nontender - Extremities General upper extremity: Normal inspection, Nontender, Normal color, Normal ROM , Normal temperature General lower extremity: Normal inspection, Nontender, Normal color, Normal ROM , Normal temperature, Normal weight bearing. No: Angelica's sign - Neurological Neuro grossly intact: Yes Cognition: Normal Orientation: AAOx4 Noé Coma Scale Eye Opening: Spontaneous Noé Coma Scale Verbal: Oriented [place] Coma Scale Motor: Obeys Commands Noé Coma Scale Total: 15 Speech: Normal Motor strength normal: LUE, RUE, LLE, RLE Sensory: Normal - Psychological Associated symptoms: Normal affect, Normal mood - Skin Skin Temperature: Warm Skin Moisture: Dry Skin Color: Normal Course - Re-evaluation Re-evalutation: 01/15/17 07:32 Well-appearing female denies suicidal or homicidal ideation. Patient is a good support system EKG she is facing some great deal of stress with her recently losing her apartment. Patient given oral lorazepam in the emergency department and a prescription for another short course of oral lorazepam. Patient will see her psychiatrist on Tuesday. - Vital Signs Vital signs: Temp Pulse Resp BP Pulse Ox 98 F 93 20 169/138 H 98 01/15/17 06:46 01/15/17 06:46 01/15/17 06:46 01/15/17 06:46 01/15/17 06:46 Discharge - Discharge Clinical Impression: Panic attack Depression Qualifiers: Depression Type: unspecified Qualified Code(s): F32.9 - Major depressive disorder, single episode, unspecified Condition: Stable Disposition: HOME, SELF-CARE Instructions: Depression ([facility]) Prescriptions: Lorazepam [Ativan 1 mg Tablet] 1 mg PO Q4 PRN #15 tab PRN Reason: Referrals: JUVE RAYA MD [Primary Care Provider] - Follow up as needed
[2017-01-15 08:03] VITALS: BP 157/105
== END 2017-01-15 08:01 | disposition home or self-care (01) ==
LOC: ER 06:35
DX: F41.0 Panic disorder [episodic paroxysmal anxiety] (principal); F32.9 Major depressive disorder, single episode, unspecified; I10 Essential (primary) hypertension; Z88.3 Allergy status to other anti-infective agents
CPT/HCPCS: 99283

== ENCOUNTER 2018-02-07 19:26 | Emergency (ER) | payer MEDICAID, OTHER ==
[2018-02-07 20:23] VITALS: BP 135/83
[2018-02-07] MEDS ORDERED: OXYCODONE-ACETAMINOPHEN 5-325 MG TABLET PO ONE (20:50)
[2018-02-07] MEDS ORDERED: PENICILLIN V POTASSIUM 500 MG TABLET PO ONE (20:50)
--- NOTE | 2018-02-07 20:54 | ER Document Report ---
HPI - HPI Patient complains to provider of: Dental pain Pain Level: 4 Context: Patient is a 32-year-old female that comes to the emergency department for chief complaint of pain in her left upper mouth, she states she has a broken tooth that has bothered her intermittently for months but over the past 3 days it has become increasingly painful and she feels a swelling sensation in her face with radiation of pain up to her left ear. She denies neck pain, sore throat, fever. - REPRODUCTIVE Reproductive: REPORTS: : Past Medical History - General Information source: Patient - Social History Smoking Status: Never Smoker Drug Abuse: None Lives with: Family Family History: Reviewed & Not Pertinent - Past Medical History Cardiac Medical History: Reports: Hx Hypertension Renal/ Medical History: Denies: Hx Peritoneal Dialysis Psychiatric Medical History: Reports: Hx Depression Past Surgical History: Reports: Hx Section, Hx Oral Surgery, Hx Orthopedic Surgery - Immunizations Hx Diphtheria, Pertussis, Tetanus Vaccination: Yes Vertical Provider Document - CONSTITUTIONAL General Appearance: WD/WN, No Apparent Distress - INFECTION CONTROL TRAVEL OUTSIDE OF THE [place] IN LAST 30 DAYS: No - HEENT HEENT: Atraumatic, Normocephalic Mouth Diagram: 1 - Dental fracture with mild surrounding tenderness but no swelling, severe erythema, induration, or fluctuance. Otherwise normal oropharyngeal exam - NECK Neck: Normal Inspection - RESPIRATORY Respiratory: Breath Sounds Normal, No Respiratory Distress - CARDIOVASCULAR Cardiovascular: Regular Rate, Regular Rhythm - GI/ABDOMEN Gastrointestinal: Abdomen Soft, Abdomen Non-Tender - MUSCULOSKELETAL/EXTREMETIES Musculoskeletal/Extremeties: MAEW, FROM, Non-Tender - NEURO Level of Consciousness: Awake, Alert, Appropriate Course - Re-evaluation Re-evalutation: Dental fracture with symptoms of infection, no notable swelling of the face, no abscess noted in the mouth, no evidence of Wei's angina. Providing with penicillin, discussed dental follow-up, discussed return precautions. Patient states understanding and agreement. - Vital Signs Vital signs: Temp Pulse Resp BP Pulse Ox 97.8 F 96 20 135/83 H 100 02/07/18 20:22 02/07/18 20:22 02/07/18 20:22 02/07/18 20:22 02/07/18 20:22 Discharge - Discharge Clinical Impression: Pain, dental Condition: Stable Disposition: HOME, SELF-CARE Additional Instructions: Your examination is consistent with a dental fracture and developing dental infection. Take penicillin as prescribed to completion. Follow-up with the dentist for additional management, if you do not infections will continue to occur, this will probably need to be extracted. Return if you worsen including swelling of the face. [facility] [address], [address] Prescriptions: Penicillin V Potassium [Penicillin Vk 500 mg Tablet] 500 mg PO BID #20 tablet Referrals: JUVE RAYA MD [Primary Care Provider] - Follow up as needed
== END 2018-02-07 21:10 | disposition home or self-care (01) ==
LOC: ER 19:26
DX: K08.9 Disorder of teeth and supporting structures, unspecified (principal)
CPT/HCPCS: 99282; J3490

== ENCOUNTER 2018-05-21 06:33 | Emergency (ER) | payer MEDICAID ==
[2018-05-21] MEDS ORDERED: CLONAZEPAM 1 MG TABLET PO ONE (07:36)
--- NOTE | 2018-05-21 07:37 | ER Document Report ---
HPI - HPI Time Seen by Provider: 05/21/18 07:09 Pain Level: Denies Notes: Patient is a 32-year-old female with past medical history of anxiety, panic disorder, depression and ADD. Patient states she has been out of her Risperdal and clonazepam for 2 days now. She states that she is having severe anxiety and panic issues to the point where she has been unable to go to work for the last 2 days. She states she missed work Tuesday and Tuesday. Patient states she called her psychiatric provider who is at [facility] but they do not an appointment for her until Tuesday. She denies any thoughts of suicide or homicide. - REPRODUCTIVE Reproductive: REPORTS: : Past Medical History - General Information source: Patient - Social History Smoking Status: Current Every Day Smoker Frequency of alcohol use: None Drug Abuse: None Family History: Reviewed & Not Pertinent Patient has suicidal ideation: No Patient has homicidal ideation: No - Past Medical History Cardiac Medical History: Reports: Hx Hypertension Renal/ Medical History: Denies: Hx Peritoneal Dialysis GI Medical History: Reports: Hx Gastroesophageal Reflux Disease Psychiatric Medical History: Reports: Hx Attention Deficit Hyperactivity Disorder, Hx Depression Past Surgical History: Reports: Hx Cardiac Catheterization, Hx Section , Hx Oral Surgery, Hx Orthopedic Surgery - Immunizations Hx Diphtheria, Pertussis, Tetanus Vaccination: Yes Vertical Provider Document - CONSTITUTIONAL Notes: PHYSICAL EXAMINATION: GENERAL: Well-appearing, well-nourished and in no acute distress. HEAD: Atraumatic, normocephalic. EYES: Pupils equal round extraocular movements intact, conjunctiva are normal. ENT: Nares patent NECK: Normal range of motion LUNGS: No respiratory distress Musculoskeletal: Normal range of motion NEUROLOGICAL: Normal speech, normal gait. PSYCH: Anxious. SKIN: Warm, Dry, normal turgor, no rashes or lesions noted. - INFECTION CONTROL TRAVEL OUTSIDE OF THE [place] IN LAST 30 DAYS: No Course - Re-evaluation Re-evalutation: 05/21/18 07:44 Patient with significant anxiety and panic symptoms. States she has been out of her medicines for 3 days. Patient has an appointment with her psychiatric provider, Yary Bah on Tuesday at 9 AM. This is located at [facility] Will give patient a dose of her clonazepam 1 mg here in the emergency department. We will write her a prescription for Risperdal 2 mg nightly for the next 2 nights, we will also refill her clonazepam 1 mg 3 times daily for the rest of today and tomorrow. - Vital Signs Vital signs: Temp Pulse Resp BP Pulse Ox 97.3 F 86 17 130/84 H 99 05/21/18 06:39 05/21/18 06:39 05/21/18 06:39 05/21/18 06:39 05/21/18 06:39 Discharge - Discharge Clinical Impression: Anxiety, Medication refill Condition: Stable Disposition: HOME, SELF-CARE Instructions: Anxiety ([facility]) Additional Instructions: Your seen in the emergency department today for your anxiety and panic disorder. I have refilled your Risperdal and clonazepam and given you enough pills for the rest of today and tomorrow since you have an appointment with your psychiatric provider scheduled for Tuesday. Please be sure to make this appointment as we typically do not refill any medications that are controlled substances in the emergency department. Prescriptions: Risperidone [Risperdal] 2 mg PO QHS #2 tablet Clonazepam [Klonopin] 1 mg PO TID #6 tablet Forms: Special Work Note Referrals: TEO WINCHESTER DO [Primary Care Provider] - Follow up as needed
[2018-05-21 08:05] VITALS: BP 125/88
== END 2018-05-21 08:05 | disposition home or self-care (01) ==
LOC: ER 06:33
DX: O99.340 Other mental disorders complicating pregnancy, unspecified trimester (principal); F41.9 Anxiety disorder, unspecified; F41.0 Panic disorder [episodic paroxysmal anxiety]; T42.4X6A Underdosing of benzodiazepines, initial encounter; F31.9 Bipolar disorder, unspecified; T43.596A Underdosing of other antipsychotics and neuroleptics, initial encounter; Z91.128 Patient's intentional underdosing of medication regimen for other reason; Z91.14 Patient's other noncompliance with medication regimen; O16.9 Unspecified maternal hypertension, unspecified trimester; O99.330 Smoking (tobacco) complicating pregnancy, unspecified trimester; Z3A.00 Weeks of gestation of pregnancy not specified; Z76.0 Encounter for issue of repeat prescription
CPT/HCPCS: 99283; J3490

== ENCOUNTER 2018-06-01 17:43 | Emergency (ER) | payer MEDICAID ==
--- NOTE | 2018-06-01 20:47 | ER Document Report ---
Addendum entered and electronically signed by EMY GUAN NP 06/01/18 21:15: Course - Vital Signs Vital signs: Temp Pulse Resp BP Pulse Ox 97.4 F 80 16 130/89 H 97 06/01/18 20:55 06/01/18 20:55 06/01/18 20:55 06/01/18 20:55 06/01/18 20:55 - EKG Interpretation by Me EKG shows normal: Sinus rhythm Rate: Normal Rhythm: NSR Addendum entered and electronically signed by EMY GUAN NP 06/01/18 20:57: Discharge - Discharge Clinical Impression: Anxiety, Medication refill Condition: Stable Disposition: HOME, SELF-CARE Instructions: Anxiety ([facility]) Additional Instructions: *You have been evaluated for anxiety, medication refill *Take medication as prescribed *Although we sympathize with you and your difficulty obtaining your chronic anxiety medication, the Emergency Department cannot be your mental health provider. Please follow up with your [facility] provider tomorrow *Return to ED for worsening condition, changes, needs, concerns, suicide or homicide ideations Prescriptions: Clonazepam [Klonopin 1 mg Tablet] 1 mg PO TID #6 tablet Referrals: [facility] [Outside] - Follow up tomorrow TEO WINCHESTER DO [NO LOCAL MD] - Follow up tomorrow Original Note: HPI - HPI Patient complains to provider of: anxiety med refill Time Seen by Provider: 06/01/18 20:36 Pain Level: Denies Context: Patient presents to the emergency department with reports of past medical history of anxiety and request for medication. Patient reports that she has had trouble filling her clonazepam prescription. She reports she was here a few weeks ago for the same. She reports that she is still waiting to see her [facility] provider. Patient reports she has been able to work because she is been so anxious. She reports she has not had clonazepam for over a week now. Denies other symptoms such as fever vomiting diarrhea. Denies thoughts of suicide or homicide. Associated Symptoms: None Exacerbated by: Denies Relieved by: Denies Similar symptoms previously: Yes Recently seen / treated by doctor: Yes - REPRODUCTIVE Reproductive: REPORTS: : Past Medical History - General Information source: Patient - Social History Smoking Status: Current Every Day Smoker Cigarette use (# per day): Yes Frequency of alcohol use: None Drug Abuse: None Lives with: Family Family History: Reviewed & Not Pertinent Patient has suicidal ideation: No Patient has homicidal ideation: No - Past Medical History Cardiac Medical History: Reports: Hx Hypertension Renal/ Medical History: Denies: Hx Peritoneal Dialysis GI Medical History: Reports: Hx Gastroesophageal Reflux Disease Psychiatric Medical History: Reports: Hx Anxiety, Hx Attention Deficit Hyperactivity Disorder, Hx Depression Past Surgical History: Reports: Hx Cardiac Catheterization, Hx Section, Hx Oral Surgery, Hx Orthopedic Surgery - Immunizations Hx Diphtheria, Pertussis, Tetanus Vaccination: Yes Vertical Provider Document - CONSTITUTIONAL Agree With Documented VS: Yes Exam Limitations: No Limitations General Appearance: WD/WN, No Apparent Distress - tearful - INFECTION CONTROL TRAVEL OUTSIDE OF THE [place] IN LAST 30 DAYS: No - HEENT HEENT: Atraumatic - NECK Neck: Supple - RESPIRATORY Respiratory: No Respiratory Distress - CARDIOVASCULAR Cardiovascular: Regular Rate - MUSCULOSKELETAL/EXTREMETIES Musculoskeletal/Extremeties: MAEW, FROM - NEURO Level of Consciousness: Awake, Alert, Appropriate Motor/Sensory: No Motor Deficit - DERM Integumentary: Warm, Dry Course - Vital Signs Vital signs: Temp Pulse Resp BP Pulse Ox 97.8 F 90 18 137/98 H 94 06/01/18 17:47 06/01/18 17:47 06/01/18 17:47 06/01/18 17:47 06/01/18 17:47 Discharge - Discharge Clinical Impression: Anxiety, Medication refill Condition: Stable Disposition: HOME, SELF-CARE Instructions: Anxiety ([facility]) Additional Instructions: *You have been evaluated for anxiety, medication refill *Take medication as prescribed *Although we sympathize with you and your difficulty obtaining your chronic anxiety medication, the Emergency Department cannot be your mental health provider. Please follow up with your [facility] provider tomorrow *Return to ED for worsening condition, changes, needs, concerns, suicide or homicide ideations Prescriptions: Clonazepam [Klonopin 1 mg Tablet] 1 mg PO TID #6 tablet Referrals: TEO WINCHESTER DO [Primary Care Provider] - Follow up tomorrow [facility] [Outside] - Follow up tomorrow
[2018-06-01 20:57] VITALS: BP 130/89
--- NOTE | 2018-06-02 15:08 | EKG REPORT ---
SEVERITY:- NORMAL ECG - SINUS RHYTHM : Confirmed by: Winston Bolaños 02-Jun-2018 15:08:04
== END 2018-06-01 21:10 | disposition home or self-care (01) ==
LOC: ER 17:43
DX: O99.340 Other mental disorders complicating pregnancy, unspecified trimester (principal); F41.9 Anxiety disorder, unspecified; T42.4X6A Underdosing of benzodiazepines, initial encounter; Z91.128 Patient's intentional underdosing of medication regimen for other reason; Z91.14 Patient's other noncompliance with medication regimen; Z76.0 Encounter for issue of repeat prescription; O99.330 Smoking (tobacco) complicating pregnancy, unspecified trimester; F17.210 Nicotine dependence, cigarettes, uncomplicated; O16.9 Unspecified maternal hypertension, unspecified trimester; Z3A.00 Weeks of gestation of pregnancy not specified
CPT/HCPCS: 93005; 93010; 99282

== ENCOUNTER 2018-06-15 10:39 | Emergency (ER) | payer MEDICAID ==
[2018-06-15 10:48] VITALS: BP 129/89
[2018-06-15] MEDS ORDERED: CLINDAMYCIN HCL 150 MG CAPSULE PO ONE (11:28)
[2018-06-15] MEDS ORDERED: HYDROCODONE/ACETAMINOPHEN 5-325 MG TABLET PO ONE (11:28)
--- NOTE | 2018-06-15 11:32 | ER Document Report ---
HPI - HPI Patient complains to provider of: Dental pain Time Seen by Provider: 06/15/18 11:07 Onset: Yesterday Onset/Duration: Gradual Quality of pain: Achy Pain Level: 3 Context: Patient complains of dental pain to all the teeth of the upper jaw. Patient denies any specific tooth that is worse. Patient denies any recent trauma. Patient denies any sinus congestion facial pain nausea or vomiting. Associated Symptoms: Other - Dental pain. denies: Fever Exacerbated by: Denies Relieved by: Denies Similar symptoms previously: Yes Recently seen / treated by doctor: No - ROS ROS below otherwise negative: Yes Systems Reviewed and Negative: Yes All other systems reviewed and negative - CONSTITUTIONAL Constitutional: DENIES: Fever, Chills - EENT EENT: DENIES: Sore Throat, Ear Pain, Eye problems Notes: Dental pain - NEURO Neurology: DENIES: Headache - RESPIRATORY Respiratory: DENIES: Trouble Breathing, Coughing - GASTROINTESTINAL Gastrointestinal: DENIES: Nausea, Patient vomiting - REPRODUCTIVE Reproductive: DENIES: : - MUSCULOSKELETAL Musculoskeletal: DENIES: Extremity pain - DERM Skin Color: Normal Skin Problems: None Past Medical History - General Information source: Patient - Social History Smoking Status: Current Every Day Smoker Chew tobacco use (# tins/day): No Frequency of alcohol use: None Drug Abuse: None Occupation: Foodservice Family History: Reviewed & Not Pertinent Patient has suicidal ideation: No Patient has homicidal ideation: No - Past Medical History Cardiac Medical History: Reports: Hx Hypertension Renal/ Medical History: Denies: Hx Peritoneal Dialysis GI Medical History: Reports: Hx Gastroesophageal Reflux Disease Psychiatric Medical History: Reports: Hx Anxiety, Hx Attention Deficit Hyperactivity Disorder, Hx Depression - anxiety Past Surgical History: Reports: Hx Cardiac Catheterization, Hx Section, Hx Oral Surgery, Hx Orthopedic Surgery - right ankle - Immunizations Hx Diphtheria, Pertussis, Tetanus Vaccination: Yes Vertical Provider Document - CONSTITUTIONAL Agree With Documented VS: Yes Exam Limitations: No Limitations General Appearance: WD/WN, No Apparent Distress - INFECTION CONTROL TRAVEL OUTSIDE OF THE [place] IN LAST 30 DAYS: No - HEENT HEENT: Atraumatic, Normocephalic. negative: Pharyngeal Exudate, Pharyngeal Tenderness, Pharyngeal Erythema, Tympanic Membrane Red, Tympanic Membrane Bulging Mouth Diagram: 1 - Diffuse tenderness, no obvious infection, no swelling, no trismus. Exquisite tenderness with tapping of teeth with tongue depressor. Notes: No maxillary facial tenderness swelling or erythema - NECK Neck: Normal Inspection, Supple. negative: Lymphadenopathy-Left, Lymphadenopathy-Right - RESPIRATORY Respiratory: Breath Sounds Normal, No Respiratory Distress - CARDIOVASCULAR Cardiovascular: Regular Rate, Regular Rhythm - BACK Back: Normal Inspection - MUSCULOSKELETAL/EXTREMETIES Musculoskeletal/Extremeties: MAEW - NEURO Level of Consciousness: Awake, Alert, Appropriate Motor/Sensory: No Motor Deficit - DERM Integumentary: Warm, Dry, No Rash Course - Vital Signs Vital signs: Temp Pulse Resp BP Pulse Ox 98.3 F 72 16 129/89 H 100 06/15/18 10:46 06/15/18 10:46 06/15/18 10:46 06/15/18 10:46 06/15/18 10:46 Discharge - Discharge Clinical Impression: Toothache Condition: Stable Disposition: HOME, SELF-CARE Instructions: Clindamycin (OM), Oral Narcotic Medication (OM), Toothache (OM) Additional Instructions: Return immediately for any new or worsening symptoms Followup with your dental care provider, call tomorrow to make a followup appointment Prescriptions: Acetaminophen with Codeine [Tylenol #3 Tablet] 1 each PO Q6HP PRN #12 tablet PRN Reason: Clindamycin HCl [Cleocin 300 mg Capsule] 300 mg PO TID #21 capsule Forms: Return to Work Referrals: INA BHATTI FNP-C [Primary Care Provider] - Follow up as needed [facility] [Provider Group] - Follow up as needed
== END 2018-06-15 11:39 | disposition home or self-care (01) ==
LOC: ER 10:39
DX: K08.9 Disorder of teeth and supporting structures, unspecified (principal); F17.200 Nicotine dependence, unspecified, uncomplicated; I10 Essential (primary) hypertension
CPT/HCPCS: 99283; J3490

== ENCOUNTER 2018-06-17 17:56 | Emergency (ER) | payer MEDICAID ==
[2018-06-17 18:12] VITALS: BP 142/89
--- NOTE | 2018-06-17 18:25 | ER Document Report ---
ED Medical Screen (RME) - General Chief Complaint: Psych Problem Stated Complaint: ANXIOUS,TEARFUL Time Seen by Provider: 06/17/18 18:14 Notes: 32-year-old female patient who moved back to this area several months ago, having problems getting in to see her previous providers at [facility]. Has been here on 05/21/2018 and got a prescription for every 6 clonazepam, returned on 06/01/2018 and got 6 more clonazepam. Was seen here 2 days ago for toothache and received Tylenol with codeine. States her anxiety is out of control and that the most recent provider she saw at [facility] wants to manage her without using clonazepam. She states she cannot function and is unable to work or care for her young child. I have greeted and performed a rapid initial assessment of this patient. A comprehensive ED assessment and evaluation of the patient, analysis of test results and completion of the medical decision making process will be conducted by additional ED providers. TRAVEL OUTSIDE OF THE [place] IN LAST 30 DAYS: No - Related Data Allergies/Adverse Reactions: erythromycin base Allergy (Verified 06/17/18 17:58) lisinopril Allergy (Verified 06/17/18 17:58) mirtazapine [From Remeron] Allergy (Verified 06/17/18 17:58) Past Medical History - Past Medical History Cardiac Medical History: Reports: Hx Hypertension Renal/ Medical History: Denies: Hx Peritoneal Dialysis GI Medical History: Reports: Hx Gastroesophageal Reflux Disease Psychiatric Medical History: Reports: Hx Anxiety, Hx Attention Deficit Hyperactivity Disorder, Hx Depression - anxiety Past Surgical History: Reports: Hx Cardiac Catheterization, Hx Section, Hx Oral Surgery, Hx Orthopedic Surgery - right ankle - Immunizations Hx Diphtheria, Pertussis, Tetanus Vaccination: Yes Physical Exam - Vital signs Vitals: Temp Pulse Resp BP Pulse Ox 97.9 F 82 16 142/89 H 99 06/17/18 18:11 06/17/18 18:11 06/17/18 18:11 06/17/18 18:11 06/17/18 18:11 Course - Vital Signs Vital signs: Temp Pulse Resp BP Pulse Ox 97.9 F 82 16 142/89 H 99 06/17/18 18:11 06/17/18 18:11 06/17/18 18:11 06/17/18 18:11 06/17/18 18:11 Doctor's Discharge - Discharge Referrals: INA BHATTI, [facility]MI[facility]-C [Primary Care Provider] - Follow up as needed
[2018-06-17] MEDS ORDERED: CLONAZEPAM 1 MG TABLET PO ONE (19:28)
--- NOTE | 2018-06-17 19:30 | ER Document Report ---
ED General - General Chief Complaint: Psych Problem Stated Complaint: ANXIOUS,TEARFUL Time Seen by Provider: 06/17/18 18:14 Notes: Patient is a 32-year-old female with a past medical history of chronic generalized anxiety who presents with increasing frequency of panic attacks, severe generalized anxiety that is preventing her from going to work. Patient states that she is on BuSpar, risperidone, Lexapro, has been taking all medications as prescribed but ever since coming off clonazepam approximately 6 weeks ago feels like her anxiety is completely out of control prevents her from performing activities of daily living. She states that she is scheduled to see her psychiatrist on Tuesday. She denies any acute suicidal or homicidal ideation. Denies any acute medical concerns outside of uncontrolled anxiety. TRAVEL OUTSIDE OF THE [place] IN LAST 30 DAYS: No - Related Data Allergies/Adverse Reactions: erythromycin base Allergy (Verified 06/17/18 18:25) lisinopril Allergy (Verified 06/17/18 18:25) mirtazapine [From Remeron] Allergy (Verified 06/17/18 18:25) Past Medical History - General Information source: Patient - Social History Smoking Status: Current Every Day Smoker Chew tobacco use (# tins/day): No Frequency of alcohol use: None Drug Abuse: None Lives with: Parents Family History: Reviewed & Not Pertinent Patient has suicidal ideation: No Patient has homicidal ideation: No - Past Medical History Cardiac Medical History: Reports: Hx Hypertension Renal/ Medical History: Denies: Hx Peritoneal Dialysis GI Medical History: Reports: Hx Gastroesophageal Reflux Disease Psychiatric Medical History: Reports: Hx Anxiety, Hx Attention Deficit Hyperactivity Disorder, Hx Depression - anxiety Past Surgical History: Reports: Hx Cardiac Catheterization, Hx Section, Hx Oral Surgery, Hx Orthopedic Surgery - right ankle - Immunizations Hx Diphtheria, Pertussis, Tetanus Vaccination: Yes Review of Systems - Review of Systems Notes: Constitutional: Negative for fever. HENT: Negative for sore throat. Eyes: Negative for visual changes. Cardiovascular: Negative for chest pain. Respiratory: Negative for shortness of breath. Gastrointestinal: Negative for abdominal pain, vomiting or diarrhea. Genitourinary: Negative for dysuria. Musculoskeletal: Negative for back pain. Skin: Negative for rash. Neurological: Negative for headaches, weakness or numbness. 10 point ROS negative except as marked above and in HPI. Physical Exam - Vital signs Vitals: Temp Pulse Resp BP Pulse Ox 97.9 F 82 16 142/89 H 99 06/17/18 18:11 06/17/18 18:11 06/17/18 18:11 06/17/18 18:11 06/17/18 18:11 Interpretation: Hypertensive Notes: PHYSICAL EXAMINATION: GENERAL: Well-appearing, well-nourished and in no acute distress. HEAD: Atraumatic, normocephalic. EYES: Pupils equal round and reactive to light, extraocular movements intact, sclera anicteric, conjunctiva are normal. ENT: nares patent, oropharynx clear without exudates. Moist mucous membranes. NECK: Normal range of motion, supple without lymphadenopathy LUNGS: Breath sounds clear to auscultation bilaterally and equal. No wheezes rales or rhonchi. HEART: Regular rate and rhythm without murmurs ABDOMEN: Soft, nontender, normoactive bowel sounds. No guarding, no rebound. No masses appreciated. EXTREMITIES: Normal range of motion, no pitting or edema. No cyanosis. NEUROLOGICAL: No focal neurological deficits. Moves all extremities spontaneously and on command. PSYCH: Normal mood, normal affect. SKIN: Warm, Dry, normal turgor, no rashes or lesions noted. Course - Re-evaluation Re-evalutation: 06/17/18 19:29 Patient presents with uncontrolled chronic generalized anxiety, states it is been much worse in the last 6 weeks after coming off clonazepam abruptly. The patient is scheduled to see her psychiatrist on Tuesday and is requesting that s he have clonazepam to bridge her until that point as she is currently unable to function, unable to even go to work and has had multiple acute panic attacks today. She is here with her mother corroborates this history. The patient does not demonstrate any drug-seeking behaviors. Is compliant with her additional treatments which include Effexor, BuSpar, and risperidone but this is not yet resolved her ongoing uncontrolled anxiety. The patient denies any acute medical complaints. Medical screening exam is otherwise unremarkable. She does not me IVC criteria, no indication for psychiatric hold or emergent psychiatric assessment in the morning. At this time will discharge with return precautions and follow-up recommendations. Verbal discharge instructions given a the bedside and opportunity for questions given. Medication warnings reviewed. Patient is in agreement with this plan and has verbalized understanding of return precautions and the need for primary care follow-up in the next 24-72 hours. - Vital Signs Vital signs: Temp Pulse Resp BP Pulse Ox 97 F L 82 16 142/89 H 99 06/17/18 20:20 06/17/18 20:20 06/17/18 20:20 06/17/18 18:11 06/17/18 20:20 Discharge - Discharge Clinical Impression: Generalized anxiety disorder, Generalized anxiety disorder with panic attacks Condition: Good Disposition: HOME, SELF-CARE Additional Instructions: Please return if you have thoughts of wanting to hurt yourself, hurt others, or have any other symptoms that are concerning to you. Prescriptions: Clonazepam [Klonopin] 1 mg PO TID #6 tablet Referrals: INA BHATTI FNP-C [Primary Care Provider] - Follow up as needed
== END 2018-06-17 19:10 | disposition home or self-care (01) ==
LOC: ER 17:56
DX: F41.1 Generalized anxiety disorder (principal); F43.0 Acute stress reaction; F17.200 Nicotine dependence, unspecified, uncomplicated; I10 Essential (primary) hypertension; Z88.3 Allergy status to other anti-infective agents
CPT/HCPCS: 99283; J3490

== ENCOUNTER 2018-06-19 11:23 | Emergency (ER) | payer MEDICAID ==
[2018-06-19 11:51] VITALS: BP 147/90
--- NOTE | 2018-06-19 12:17 | ER Document Report ---
ED Medical Screen (RME) - General Chief Complaint: Anxiety Stated Complaint: ANXIETY Time Seen by Provider: 06/19/18 12:08 Mode of Arrival: Ambulatory Information source: Patient, Parent, [facility] Records Notes: 32-year-old female patient is here complaining of anxiety issues and needing to find another doctor that we will prescribe her clonazepam. She was seen here on 05/21/2018 for clonazepam, again on 06/01/2018, seen for a different problem on 06/15/2018, here again on 06/17/2017 for clonazepam, and returns today on 06/19/2018. She did go to [facility], but the providers she has seen are unwilling to continue her on clonazepam and think she should stop the medication. She had been on clonazepam 1 mg 3 times daily for at least 2 years. She claims that she is going through withdrawal, however she was seen here on 05/21/2018 and prescribed clonazepam 1 mg 3 times daily for 2 days #6 tablets. She returned 11 days later on 06/01/2018 and was again prescribed clonazepam 1 mg 3 times daily for 2 days #6 tablets. Her next visit for this problem was 16 days later on 06/17/2018 where she again received clonazepam 1 mg 3 times daily for 2 days #6 tablets. It is obvious from this pattern that she is not in benzodiazepine withdrawal. Psychiatric consult was requested. See the psychiatric consult for further details. TRAVEL OUTSIDE OF THE [place] IN LAST 30 DAYS: No - Related Data Allergies/Adverse Reactions: erythromycin base Allergy (Verified 06/19/18 11:25) lisinopril Allergy (Verified 06/19/18 11:25) mirtazapine [From Remeron] Allergy (Verified 06/19/18 11:25) Past Medical History - General Information source: Patient, Parent, [facility] Records - Social History Cigarette use (# per day): Yes - Everyday smoker Chew tobacco use (# tins/day): No Frequency of alcohol use: None Drug Abuse: None Lives with: Parents Family history: Reviewed & Not Pertinent - Past Medical History Cardiac Medical History: Reports: Hx Hypertension GI Medical History: Reports: Hx Gastroesophageal Reflux Disease Psychiatric Medical History: Reports: Hx Anxiety, Hx Attention Deficit Hyperactivity Disorder, Hx Depression Past Surgical History: Reports: Hx Cardiac Catheterization, Hx Section, Hx Oral Surgery, Hx Orthopedic Surgery - right ankle - Immunizations Hx Diphtheria, Pertussis, Tetanus Vaccination: Yes Review of Systems - Review of Systems Constitutional: No symptoms reported EENT: No symptoms reported Cardiovascular: No symptoms reported Respiratory: No symptoms reported Gastrointestinal: No symptoms reported Genitourinary: No symptoms reported Female Genitourinary: No symptoms reported Musculoskeletal: No symptoms reported Skin: No symptoms reported Hematologic/Lymphatic: No symptoms reported Neurological/Psychological: Depression, Anxiety Physical Exam - Vital signs Vitals: Temp Pulse Resp BP Pulse Ox 97.6 F 71 15 147/90 H 97 06/19/18 11:48 06/19/18 11:48 06/19/18 11:48 06/19/18 11:48 06/19/18 11:48 - Notes Notes: PHYSICAL EXAMINATION: GENERAL: Well-appearing, well-nourished and in no acute distress. HEAD: Atraumatic, normocephalic. EYES: Pupils equal round and reactive to light, extraocular movements intact, sclera anicteric, conjunctiva are normal. ENT: nares patent, oropharynx clear without exudates. Moist mucous membranes. NECK: Normal range of motion, supple without lymphadenopathy LUNGS: Breath sounds clear to auscultation bilaterally and equal. No wheezes rales or rhonchi. HEART: Regular rate and rhythm without murmurs ABDOMEN: Soft, nontender, normoactive bowel sounds. No guarding, no rebound. No masses appreciated. EXTREMITIES: Normal range of motion, no pitting or edema. No cyanosis. NEUROLOGICAL: Cranial nerves grossly intact. Normal speech, normal gait. Normal sensory, motor, and reflex exams. PSYCH: When the patient begins to discuss her problem she will break out into tears and flail about somewhat. She does appear to be able to turn this behavior on and off at will. SKIN: Warm, Dry, normal turgor, no rashes or lesions noted. Course - Re-evaluation Re-evalutation: 06/19/18 20:59 Teo Acosta met with the patient and discussed her previous and current psychiatric history and medication history. She did consult with Dr. Clark, and they recommend cognitive behavioral therapy and to follow-up with another local provider. They also agreed with me that the patient is not likely in benzodiazepine withdrawal and that it would be in her best interest to stop taking and depending upon clonazepam in her day-to-day life. - Vital Signs Vital signs: Temp Pulse Resp BP Pulse Ox 97.6 F 71 15 147/90 H 97 06/19/18 11:48 06/19/18 11:48 06/19/18 11:48 06/19/18 11:48 06/19/18 11:48 Doctor's Discharge - Discharge Clinical Impression: Generalized anxiety disorder, Chronic prescription benzodiazepine use Depression Qualifiers: Depression Type: unspecified Qualified Code(s): F32.9 - Major depressive disorder, single episode, unspecified Condition: Stable Disposition: HOME, SELF-CARE Instructions: Anxiety ([facility]) Additional Instructions: Follow-up with the resource list provided for mental health. Follow-up with your primary care provider for any other concerns. RETURN TO THE EMERGENCY ROOM IF ANY NEW OR WORSENING SYMPTOMS. Referrals: TEO WINCHESTER DO [NO LOCAL MD] - Follow up as needed
--- NOTE | 2018-06-19 13:14 | PSYCHOLOGICAL NOTE ---
Psych Note - Psych Note Date seen by psych provider: 06/19/18 Time seen by psych provider: 12:30 - 0 Psych Note: Reason for Consult: Anxiety Patient's mother in room during evaluation per patient's request; patient seen in [facility] 32-year-old female patient is here complaining of anxiety issues and needing to find another doctor that we will prescribe her clonazepam. Patient reports that she understands that it looks really bad on paper. She reports she has been trying to explain that she was getting her medications from Dr. Olvera however in April went to telehealth to get her prescription. That prescription she reports was the wrong dosage (i.e. 0.5 instead of 1 mg) so she went back to her primary daycare provider and requested the correct dosage the next day. She reports that her primary daycare provider now states that they will not provide any psychiatric medications to her. She has been unable to establish a psychiatrist to write the prescriptions. This has resulted in her coming to the emergency department on multiple occasions requesting bridge scripts. Clinician notes patient came to [facility] before her medications should have been out and only received 2 days worth; however, she did not come back for assistance again for another 11 days which she received another 2 days worth. Clinician provided psychoeducation on medication management and the effectiveness of therapeutic intervention. Patient reports she wants to be back on the medication fully for a month or 2 so she can then wean off. Clinician pointed out that she has already begun the weaning off. In that right now she is dealing with a psychological need i.e. addiction. Patient is alert and orientated to person, place, time and circumstance. Mood is dysphoric with tearful affect that appears to be able to stop and start easily. Patient denies homicidal and suicidal ideation. Delusions are absent behaviors congruent with an intact reality based presentation i.e. organized and linear thought process. Eye contact is fair. Conversational speech becomes tearful and difficult to understand when not getting what she wants. Intellectual abilities appear to be within the average range. Attention and concentration are fair. Insight, judgment, impulse control are fair. No medication recommendations at this time Unspecified benzodiazepine use disorder Unspecified anxiety disorder per history provided by patient Unspecified depressive disorder per history provided by patient Impression\plan: Patient is cleared from acute psychiatric services. Patient does not meet IVC criteria per [place] GS 122C. Patient is demonstrating behaviors indicating substance abuse dependency/misuse. Patient is either unable or unwilling to fully understand that she is currently weaning herself off the medication and that it is now a psychological piece that needs to be addressed rather than the physical addictive piece. Patient presents dysphoric with tearful affect that she easily stops and starts throughout the entire evaluation. Patient was able to demonstrate some problem solving skills as identifying needing a mental health provider to provide all psychiatric medications from her primary daycare provider who would prescribe her medical medications. Clinician discussed the need for CBT. When patient reported that she has gone through it, clinician explained that she needs to retake it as she is not demonstrating the skills that she would have learned during that treatment. Patient's mother was provided a local resource list of area providers and agrees to be part of the patient's support network to assist her in straightening out her providers and consistency on medication management. Dr. Clark was consulted and care management this patient; attending physicians in agreement with recommendations and disposition.
== END 2018-06-19 12:57 | disposition home or self-care (01) ==
LOC: ER 11:23
DX: F41.9 Anxiety disorder, unspecified (principal); F32.9 Major depressive disorder, single episode, unspecified; F19.20 Other psychoactive substance dependence, uncomplicated; Z79.899 Other long term (current) drug therapy; F17.200 Nicotine dependence, unspecified, uncomplicated; I10 Essential (primary) hypertension
CPT/HCPCS: 99283

== ENCOUNTER 2018-06-22 12:40 | Emergency (ER) | payer MEDICAID, OTHER ==
[2018-06-22] MEDS ORDERED: CLONAZEPAM 1 MG TABLET PO ONE (13:50)
--- NOTE | 2018-06-22 13:54 | ER Document Report ---
ED Medical Screen (RME) - General Chief Complaint: Anxiety Stated Complaint: POSSIBLE ANXIETY Time Seen by Provider: 06/22/18 13:38 Mode of Arrival: Ambulatory Information source: Patient Notes: This is a 32-year-old female with a history of depression and anxiety who [facility] The patient has a long history of depression and anxiety easily been on clonazepam 1 mg 3 times daily. When she moved to this area, she was evaluated by Dr. Garber's office and referred to [facility]. Patient states they continued her on clonazepam at a reduced dose (half milligrams 3 times daily). Patient states she ended up going to see [facility] because a felt that port was not helping her. Patient states she was seen by Анна Bah and prescribed clonazepam 1 mg 3 times a day. Patient states she then returned the half dose clonazepam to [facility]. On reassessment at [facility], the patient states she was seen by Duc Moeller who took her off the clonazepam. Patient states that since that time she is been getting increasingly anxious and depressed. Patient started going to [facility] and was apparently evaluated there for 4 hours today. They had brought up the possible need for inpatient psychiatric care as they will not be able to follow-up with this patient until September 29. So the bottom line is, the patient has been to multiple psychiatric facilities to try and get stabilized on a medicine (that she is previously been prescribed) for her anxiety. Unfortunately, after multiple visits to the ER as well as these outpatient psychiatric facilities, for some reason, she has not been able to get stabilized on medicines. Both the patient and the patient's mother are in [place] and seen very frustrated and upset at this point. They are here for reevaluation TRAVEL OUTSIDE OF THE [place] IN LAST 30 DAYS: No - Related Data Allergies/Adverse Reactions: erythromycin base Allergy (Verified 06/22/18 12:41) lisinopril Allergy (Verified 06/22/18 12:41) mirtazapine [From Remeron] Allergy (Verified 06/22/18 12:41) Past Medical History - Social History Frequency of alcohol use: Occasional Drug Abuse: None Family history: Reviewed & Not Pertinent - Past Medical History Cardiac Medical History: Reports: Hx Hypertension Renal/ Medical History: Denies: Hx Peritoneal Dialysis GI Medical History: Reports: Hx Gastroesophageal Reflux Disease Psychiatric Medical History: Reports: Hx Anxiety, Hx Attention Deficit Hyperactivity Disorder, Hx Depression Past Surgical History: Reports: Hx Cardiac Catheterization, Hx Section, Hx Oral Surgery, Hx Orthopedic Surgery - right ankle - Immunizations Hx Diphtheria, Pertussis, Tetanus Vaccination: Yes Physical Exam - Vital signs Vitals: Temp Pulse Resp BP Pulse Ox 97.5 F 78 16 135/87 H 97 06/22/18 12:45 06/22/18 12:45 06/22/18 12:45 06/22/18 12:45 06/22/18 12:45 Course - Vital Signs Vital signs: Temp Pulse Resp BP Pulse Ox 97.5 F 78 16 135/87 H 97 06/22/18 12:45 06/22/18 12:45 06/22/18 12:45 06/22/18 12:45 06/22/18 12:45 Doctor's Discharge - Discharge Instructions: Anxiety ([facility]) Referrals: INA BHATTI FNP-C [Primary Care Provider] - Follow up as needed
[2018-06-22 14:22] LABS: ABSOLUTE BASOPHILS # (AUTO) 0.1 10^3/uL (0.0-0.2); ABSOLUTE EOSINOPHILS # (AUTO) 1.2 10^3/uL (0.0-0.6); ABSOLUTE LYMPHOCYTES (AUTO) 4.1 10^3/uL (0.5-4.7); ABSOLUTE MONOCYTES (AUTO) 0.6 10^3/uL (0.1-1.4); ABSOLUTE NEUT (AUTO) 6.8 10^3/uL (1.7-8.2); BASOPHILS % (AUTO) 0.7 % (0-2); EOSINOPHILS % (AUTO) 9.2 % (0-6); HEMATOCRIT 40.1 % (36.0-47.0); HEMOGLOBIN 13.5 g/dL (12.0-15.5); LYMPHOCYTES % (AUTO) 32.1 % (13-45); MEAN CORPUSCULAR HEMOGLOBIN 29.4 pg (27.0-33.4); MEAN CORPUSCULAR HGB CONC 33.7 g/dL (32.0-36.0); MEAN CORPUSCULAR VOLUME 87 fl (80-97); MONOCYTES % (AUTO) 4.5 % (3-13); PLATELET COUNT 334 10^3/uL (150-450); RED CELL DISTRIBUTION WIDTH 13.7 % (11.5-14.0); SEGMENTED NEUTROPHILS % (AUTO) 53.5 % (42-78); TOTAL CELLS COUNTED % (AUTO) 100 %; WHITE BLOOD COUNT 12.7 10^3/uL (4.0-10.5)
[2018-06-22 14:30] LABS: APPEARANCE,URINE SLIGHTLY-CLOUDY; BILIRUBIN,URINE NEGATIVE (NEGATIVE); COLOR,URINE YELLOW; GLUCOSE, URINE NEGATIVE (NEGATIVE); KETONES,URINE NEGATIVE (NEGATIVE); LEUKOCYTE ESTERASE,URINE NEGATIVE (NEGATIVE); NITRITE,URINE NEGATIVE (NEGATIVE); PROTEIN,URINE NEGATIVE (NEGATIVE); URINE SPECIFIC GRAVITY 1.008; UROBILINOGEN,URINE NEGATIVE mg/dL (<2.0)
[2018-06-22 14:41] LABS: ALANINE AMINOTRANSFERASE 45 U/L (9-52); ALBUMIN 4.3 g/dL (3.5-5.0); ALKALINE PHOSPHATASE 86 U/L (38-126); ANION GAP 7 (5-19); ASPARTATE AMINO TRANSFERASE 22 U/L (14-36); BILIRUBIN,DIRECT 0.1 mg/dL (0.0-0.4); BILIRUBIN,TOTAL 0.2 mg/dL (0.2-1.3); BLOOD UREA NITROGEN 14 mg/dL (7-20); CARBON DIOXIDE 29 mmol/L (22-30); CHLORIDE 102 mmol/L (98-107); GLUCOSE 75 mg/dL (75-110); POTASSIUM 4.7 mmol/L (3.6-5.0); SODIUM 137.5 mmol/L (137-145); TOTAL PROTEIN 6.5 g/dL (6.3-8.2)
[2018-06-22 14:43] LABS: ACETAMINOPHEN < 10 ug/mL (10-30); ALCOHOL < 10 mg/dL (NONE DETECTED); SALICYLATE < 1.0 mg/dL (2.0-20.0); URINE AMPHETAMINES SCREEN NEGATIVE; URINE BARBITURATES SCREEN NEGATIVE; URINE BENZODIAZEPINES SCREEN NEGATIVE; URINE COCAINE SCREEN NEGATIVE; URINE MARIJUANA (THC) SCREEN NEGATIVE; URINE METHADONE SCREEN NEGATIVE; URINE PHENCYCLIDINE SCREEN NEGATIVE
--- NOTE | 2018-06-22 15:37 | PSYCHOLOGICAL NOTE ---
Psych Note - Psych Note Date seen by psych provider: 06/22/18 Time seen by psych provider: 14:30 Psych Note: Reason for Consult: Anxiety Patient's mother in room during evaluation per patient's request; patient seen in [facility] Patient reports she followup with [facility] and has an appointment for therapy on 07/13/2018 but does not have a medication appointment until September. She disclosed when she would talking to Minh of [facility] she reports that she can not function, she cries frequently, can't get out of bed or take of her child. She reports she told the [facility] worker she thought she needs to go inpatient to get on her medication because she can not wait until September. Patient is alert and orientated to person, place, time and circumstance. Mood with currently euthymic with anxious affect. Patient denies suicidal and homicidal ideation. Delusions are absent and presentation is congruent with an intact reality based presentation (ie organized and linear thought process). eye contact was well maintained. Conversational speech is within normal rate, tone and prosody. Intellectual abilities appear to be within the average. Attention and concentration are currently good. Insight, judgment and impulse control is fair. No medication recommendations at this time Unspecified benzodiazepine use disorder Unspecified anxiety disorder per history provided by patient Unspecified depressive disorder per history provided by patient Impression\plan: Patient is cleared from acute psychiatric services. Patient does not meet IVC criteria per [place] GS 122C. Patient reports she came to [facility] in the hope of getting inpatient psychiatric treatment. It was explained that [facility] does not have inpatient psychiatric treatment in hospital and can only transport IVC status patient's. Patient denies thoughts of wanting to harm herself or others, stating she just wants assistance getting back on her medications. Patient was seen by the clinician 3 days previous, she was demonstrating behaviors indicating substance abuse dependency/misuse. Clinician discussed the need for CBT during this visit and previous visit. Dr. Clark was consulted on the care and management of this patient; attending physician is in agreement with recommendations and disposition.
--- NOTE | 2018-06-22 16:37 | ER Document Report ---
ED Psych Disorder / Suicide - General Chief Complaint: Anxiety Stated Complaint: POSSIBLE ANXIETY Time Seen by Provider: 06/22/18 13:38 Mode of Arrival: Ambulatory Notes: 32-year-old female patient emergency department for evaluation of anxiety. Patient states that she is only here for clonazepam refill. Patient states that she cannot seem to get a doctor to prescribe her Klonopin. Has been here several times for the same request. Denies any suicidal ideation, homicidal ideation or other issues at this time. TRAVEL OUTSIDE OF THE [place] IN LAST 30 DAYS: No - HPI Patient complains to provider of: No: Overdose, Suicidal ideation, Suicidal plan Onset was: Gradual Quality of pain: No pain Severity: None Pain Level: Denies - Related Data Allergies/Adverse Reactions: erythromycin base Allergy (Verified 06/22/18 12:41) lisinopril Allergy (Verified 06/22/18 12:41) mirtazapine [From Remeron] Allergy (Verified 06/22/18 12:41) Past Medical History - General Information source: Patient - Social History Smoking Status: Current Every Day Smoker Frequency of alcohol use: Occasional Drug Abuse: None Lives with: Family Family History: Reviewed & Not Pertinent Patient has suicidal ideation: No Patient has homicidal ideation: No - Past Medical History Cardiac Medical History: Reports: Hx Hypertension Renal/ Medical History: Denies: Hx Peritoneal Dialysis GI Medical History: Reports: Hx Gastroesophageal Reflux Disease Psychiatric Medical History: Reports: Hx Anxiety, Hx Attention Deficit Hyperactivity Disorder, Hx Depression Past Surgical History: Reports: Hx Cardiac Catheterization, Hx Section, Hx Oral Surgery, Hx Orthopedic Surgery - right ankle - Immunizations Hx Diphtheria, Pertussis, Tetanus Vaccination: Yes Review of Systems - Review of Systems Notes: Constitutional: denies: Chills, Diaphoresis, Fever, Malaise, Weakness EENT: denies: Eye discharge, Blurred vision, Tearing, Double vision, Nose congestion, Nose discharge, Throat swelling, Mouth pain Cardiovascular: denies: Palpitations, Heart racing, Orthopnea, Dyspnea, Chest pain Respiratory: denies: Cough, Hurts to breathe, Wheezing, Shortness of breath Gastrointestinal: denies: Abdominal pain, Diarrhea, Nausea, Vomiting, Black stools, bright red blood in stool Genitourinary: denies: Burning, Dysuria, Discharge, Frequency, Flank pain, Hematuria Musculoskeletal: denies: Joint pain, Joint swelling, Muscle pain, Muscle stiffness, back pain Hematologic/Lymphatic: denies: Anemia, Easy bleeding, Easy bruising, Blood clots Neurological/Psychological: denies: Confusion, Dementia, Loss of consciousness. Does complain of chronic depression and anxiety Skin: No lesions, no masses, no skin breakdown, no abscesses Physical Exam - Vital signs Vitals: Temp Pulse Resp BP Pulse Ox 97.5 F 78 16 135/87 H 97 06/22/18 12:45 06/22/18 12:45 06/22/18 12:45 06/22/18 12:45 06/22/18 12:45 Interpretation: Normal - General General appearance: Appears well, Alert - HEENT Head: Normocephalic, Atraumatic Eyes: Normal Pupils: PERRL - Respiratory Respiratory status: No respiratory distress Chest status: Nontender Breath sounds: Normal Chest palpation: Normal - Cardiovascular Rhythm: Regular Heart sounds: Normal auscultation Murmur: No - Abdominal Inspection: Normal Distension: No distension Bowel sounds: Normal Tenderness: Nontender Organomegaly: No organomegaly - Back Back: Normal, Nontender - Extremities General upper extremity: Normal inspection, Nontender, Normal color, Normal ROM, Normal temperature General lower extremity: Normal inspection, Nontender, Normal color, Normal ROM, Normal temperature, Normal weight bearing. No: Angelica's sign - Neurological Neuro grossly intact: Yes Cognition: Normal Orientation: AAOx4 [place] Coma Scale Eye Opening: Spontaneous [place] Coma Scale Verbal: Oriented [place] Coma Scale Motor: Obeys Commands [place] Coma Scale Total: 15 Speech: Normal Motor strength normal: LUE, RUE, LLE, RLE Sensory: Normal - Psychological Associated symptoms: Normal affect, Normal mood - Skin Skin Temperature: Warm Skin Moisture: Dry Skin Color: Normal Course - Re-evaluation Re-evalutation: 06/22/18 16:38 Patient is bargaining for benzodiazepines. I have explained to her that I am not going to prescribe this for her. I asked her in the event that I could prescribe a combination of medications that gave her the same effect with regards to her anxiety that the clonazepam does which she would be happy with that. Patient says no. Spoke with mental health. She is not meeting criteria for involuntary commitment. A review of her prescription monitoring shows that she has had multiple providers prescribing her controlled substances. Patient does not meet inpatient criteria for her drug addiction. Follow-up information has been given for outpatient resources. Find no compelling reason to comply with her demands. Will discharge at this time in stable condition. Of note, patient did say that she has already tapered herself off of the clonazepam and that she currently is not going through withdrawals. 06/22/18 20:31 Laboratory 06/22/18 06/22/18 06/22/18 14:00 14:00 14:00 WBC 12.7 H RBC 4.60 Hgb 13.5 Hct 40.1 MCV 87 MCH 29.4 MCHC 33.7 RDW 13.7 Plt Count 334 Seg Neutrophils % 53.5 Lymphocytes % 32.1 Monocytes % 4.5 Eosinophils % 9.2 H Basophils % 0.7 Absolute Neutrophils 6.8 Absolute Lymphocytes 4.1 Absolute Monocytes 0.6 Absolute Eosinophils 1.2 H Absolute Basophils 0.1 Sodium 137.5 Potassium 4.7 Chloride 102 Carbon Dioxide 29 Anion Gap 7 BUN 14 Creatinine 1.02 Est GFR ( Amer) > 60 Est GFR (Non-Af Amer) > 60 Glucose 75 Calcium 10.0 Total Bilirubin 0.2 Direct Bilirubin 0.1 Neonat Total Bilirubin Not Reportable Neonat Direct Bilirubin Not Reportable Neonat Indirect Bili Not Reportable AST 22 ALT 45 Alkaline Phosphatase 86 Total Protein 6.5 Albumin 4.3 Serum HCG, Qual NEGATIVE Urine Color Urine Appearance Urine pH Ur Specific [place] Urine Protein Urine Glucose (UA) Urine Ketones Urine Blood Urine Nitrite Urine Bilirubin Urine Urobilinogen Ur Leukocyte Esterase Urine WBC (Auto) Urine RBC (Auto) Urine Bacteria (Auto) Squamous Epi Cells Auto Urine Mucus (Auto) Urine Ascorbic Acid Salicylates < 1.0 L Urine Opiates Screen Urine Methadone Screen Acetaminophen < 10 L Ur Barbiturates Screen Ur Phencyclidine Scrn Ur Amphetamines Screen U Benzodiazepines Scrn Urine Cocaine Screen U Marijuana (THC) Screen Serum Alcohol < 10 06/22/18 06/22/18 14:00 14:00 WBC RBC Hgb Hct MCV MCH MCHC RDW Plt Count Seg Neutrophils % Lymphocytes % Monocytes % Eosinophils % Basophils % Absolute Neutrophils Absolute Lymphocytes Absolute Monocytes Absolute Eosinophils Absolute Basophils Sodium Potassium Chloride Carbon Dioxide Anion Gap BUN Creatinine Est GFR ( Amer) Est GFR (Non-Af Amer) Glucose Calcium Total Bilirubin Direct Bilirubin Neonat Total Bilirubin Neonat Direct Bilirubin Neonat Indirect Bili AST ALT Alkaline Phosphatase Total Protein Albumin Serum HCG, Qual Urine Color YELLOW Urine Appearance SLIGHTLY-CLOUDY Urine pH 6.0 Ur Specific [place] 1.008 Urine Protein NEGATIVE Urine Glucose (UA) NEGATIVE Urine Ketones NEGATIVE Urine Blood NEGATIVE Urine Nitrite NEGATIVE Urine Bilirubin NEGATIVE Urine Urobilinogen NEGATIVE Ur Leukocyte Esterase NEGATIVE Urine WBC (Auto) 3 Urine RBC (Auto) 3 Urine Bacteria (Auto) 3+ Squamous Epi Cells Auto 4 Urine Mucus (Auto) RARE Urine Ascorbic Acid NEGATIVE Salicylates Urine Opiates Screen NEGATIVE Urine Methadone Screen NEGATIVE Acetaminophen Ur Barbiturates Screen NEGATIVE Ur Phencyclidine Scrn NEGATIVE Ur Amphetamines Screen NEGATIVE U Benzodiazepines Scrn NEGATIVE Urine Cocaine Screen NEGATIVE U Marijuana (THC) Screen NEGATIVE Serum Alcohol - Vital Signs Vital signs: Temp Pulse Resp BP Pulse Ox 97.7 F 79 18 124/66 98 06/22/18 16:52 06/22/18 16:52 06/22/18 16:52 06/22/18 16:52 06/22/18 16:52 - Laboratory Result Diagrams: 06/22/18 14:00 06/22/18 14:00 Laboratory results interpreted by me: 06/22/18 06/22/18 14:00 14:00 WBC 12.7 H Eosinophils % 9.2 H Absolute Eosinophils 1.2 H Salicylates < 1.0 L Acetaminophen < 10 L Discharge - Discharge Clinical Impression: Benzodiazepine dependence Condition: Good Disposition: HOME, SELF-CARE Instructions: Anxiety ([facility]) Additional Instructions: It is important that you follow the recommendations of your mental health providers and primary care doctors. The emergency department is not an appropriate place for refilling chronic medications especially controlled substances. We are providing you a medication which can help with your blood pressure as well as increase your ability to tolerate your phobic situations. This medication is called propranolol. It will be important that you stop the metoprolol and begin taking the propranolol instead. This will also lower your heart rate and treat your blood pressure but will also give you a calming sensation similar to the clonazepam. Please follow-up with your regular doctors. Prescriptions: Propranolol HCl [Inderal 20 mg Tablet] 20 mg PO Q12 30 Days #60 tab Referrals: INA BHATTI FNP-C [Primary Care Provider] - Follow up as needed
[2018-06-22 16:54] VITALS: BP 124/66
--- NOTE | 2018-06-22 23:09 | EKG REPORT ---
SEVERITY:- NORMAL ECG - SINUS RHYTHM : Confirmed by: Winston Bolaños 22-Jun-2018 23:08:35
== END 2018-06-22 17:03 | disposition home or self-care (01) ==
LOC: ER 12:40
DX: F19.10 Other psychoactive substance abuse, uncomplicated (principal); F41.9 Anxiety disorder, unspecified; Z79.899 Other long term (current) drug therapy; F17.200 Nicotine dependence, unspecified, uncomplicated; I10 Essential (primary) hypertension
CPT/HCPCS: 93005; 99284; 36415; 80307 ×4; 84703; 85025; 80053; 81001; 93010; J3490

== ENCOUNTER 2018-07-11 11:59 | Emergency (ER) | payer MEDICAID, OTHER ==
[2018-07-11] MEDS ORDERED: KETOROLAC TROMETHAMINE INJ/PF 30 MG/1 ML SDV IM ONE (12:40)
[2018-07-11] MEDS ORDERED: DEXAMETHASONE SOD PHOS INJ 10 MG/1 ML VIAL IM ONE (12:40)
--- NOTE | 2018-07-11 12:47 | ER Document Report ---
Addendum entered and electronically signed by LINK KWON PA-C 07/11/18 14:43: Discharge - Discharge Clinical Impression: Acute exacerbation of chronic low back pain Sciatica Qualifiers: Laterality: left Qualified Code(s): M54.32 - Sciatica, left side Condition: Good Disposition: HOME, SELF-CARE Instructions: Ice Packs ([facility]), Low Back Pain ([facility]), Muscle Strain ([facility]), Pain Medication Injection ([facility]) Prescriptions: Cyclobenzaprine HCl [Flexeril 5 mg Tablet] 5 mg PO TID #15 tablet Naproxen 500 mg PO BID 5 Days #10 tablet Referrals: INA BHATTI FNP-C [Primary Care Provider] - Follow up as needed Original Note: ED General - General Chief Complaint: Low Back Pain Stated Complaint: BACK PAIN Time Seen by Provider: 07/11/18 12:29 Primary Care Provider: INA BHATTI FNP-C [Primary Care Provider] - Follow up as needed Mode of Arrival: Ambulatory Information source: Patient TRAVEL OUTSIDE OF THE [place] IN LAST 30 DAYS: No - HPI Patient complains to provider of: back pain Onset: Last week Onset/Duration: Gradual Quality of pain: Sharp, Stabbing Severity: Severe Context: patient is a fine dining server at a restaurant. Associated symptoms: denies: Chills, Diarrhea, Fever, Hurts to breath, Nausea, Vomiting Exacerbated by: Movement, Walking Relieved by: Denies Similar symptoms previously: Yes Recently seen / treated by doctor: No - Related Data Allergies/Adverse Reactions: erythromycin base Allergy (Verified 07/11/18 12:06) lisinopril Allergy (Verified 07/11/18 12:06) mirtazapine [From Remeron] Allergy (Verified 07/11/18 12:06) quetiapine [From Seroquel] Allergy (Verified 07/11/18 12:36) Past Medical History - General Information source: Patient - Social History Smoking Status: Current Every Day Smoker Frequency of alcohol use: None Drug Abuse: None Family History: Reviewed & Not Pertinent Patient has suicidal ideation: No Patient has homicidal ideation: No - Past Medical History Cardiac Medical History: Reports: Hx Hypertension Renal/ Medical History: Denies: Hx Peritoneal Dialysis GI Medical History: Reports: Hx Gastroesophageal Reflux Disease Psychiatric Medical History: Reports: Hx Anxiety, Hx Attention Deficit Hyperactivity Disorder, Hx Depression Past Surgical History: Reports: Hx Cardiac Catheterization, Hx Section, Hx Oral Surgery, Hx Orthopedic Surgery - right ankle - Immunizations Hx Diphtheria, Pertussis, Tetanus Vaccination: Yes Review of Systems - Review of Systems Constitutional: denies: Chills, Fever EENT: No symptoms reported Cardiovascular: No symptoms reported Respiratory: No symptoms reported Gastrointestinal: No symptoms reported Genitourinary: No symptoms reported Female Genitourinary: No symptoms reported Musculoskeletal: Back pain. denies: Joint swelling, Leg swelling Skin: No symptoms reported Hematologic/Lymphatic: No symptoms reported Neurological/Psychological: No symptoms reported Physical Exam - Vital signs Vitals: Temp Pulse Resp BP Pulse Ox 97.8 F 64 20 141/90 H 97 07/11/18 12:23 07/11/18 12:23 07/11/18 12:23 07/11/18 12:23 07/11/18 12:23 - General General appearance: Appears well - HEENT Head: Normocephalic, Atraumatic - Respiratory Respiratory status: No respiratory distress Breath sounds: Normal - Cardiovascular Rhythm: Regular Heart sounds: Normal auscultation Murmur: No - Abdominal Inspection: Normal Bowel sounds: Normal Tenderness: Nontender - Back Back: Other - Left paralumbar tenderness to palpation. No midline tenderness or step-off - Extremities Notes: Moves all extremities well. Otherwise atraumatic appearing. - Neurological Neuro grossly intact: Yes - Psychological Associated symptoms: Normal affect, Normal mood - Skin Skin Temperature: Warm Skin Moisture: Dry Notes: No rash Course - Vital Signs Vital signs: Temp Pulse Resp BP Pulse Ox 97.8 F 64 20 141/90 H 97 07/11/18 12:23 07/11/18 12:23 07/11/18 12:23 07/11/18 12:23 07/11/18 12:23 - Transfer of Care Notes: 07/11/18 12:49 We will go ahead and give a dose of IM Toradol and dexamethasone here. Discharge patient home on naproxen and Norflex. Discharge - Discharge Clinical Impression: Acute exacerbation of chronic low back pain Sciatica Qualifiers: Laterality: left Qualified Code(s): M54.32 - Sciatica, left side Condition: Good Disposition: HOME, SELF-CARE Instructions: Low Back Pain ([facility]), Muscle Strain ([facility]), Pain Medication Injection ([facility]), Ice Packs ([facility]) Prescriptions: Naproxen Sodium [Naprelan] 500 mg PO BID 5 Days #10 tablet.sa Orphenadrine Citrate 100 mg PO BID 5 Days #10 tablet.sa Referrals: INA BHATTI FNP-C [Primary Care Provider] - Follow up as needed
[2018-07-11 13:20] VITALS: BP 129/88
== END 2018-07-11 13:24 | disposition home or self-care (01) ==
LOC: ER 11:59
DX: M54.42 Lumbago with sciatica, left side (principal); G89.29 Other chronic pain; F17.200 Nicotine dependence, unspecified, uncomplicated; I10 Essential (primary) hypertension; Z88.1 Allergy status to other antibiotic agents; Z88.8 Allergy status to other drugs, medicaments and biological substances
CPT/HCPCS: 99283; 96372; J1885; J1100

== ENCOUNTER 2018-07-31 16:55 | Emergency (ER) | payer MEDICAID ==
[2018-07-31 17:02] VITALS: BP 161/130
[2018-07-31] MEDS ORDERED: CLONAZEPAM 1 MG TABLET PO ONE (17:31)
--- NOTE | 2018-07-31 17:34 | ER Document Report ---
ED General - General Chief Complaint: Psych Problem Stated Complaint: PSYCH EVAL Time Seen by Provider: 07/31/18 17:04 Primary Care Provider: INA BHATTI FNP-C [Primary Care Provider] - Follow up as needed Mode of Arrival: Ambulatory Information source: Patient, Parent, [facility] Records Notes: 32-year-old female with hypertension, GERD, depression, insomnia, panic disorder presents with complaint of anxiety, palpitations, inability to perform daily functions. Patient reports that she called [facility] crisis earlier today progressively worsening anxiety. Patient states that she was laying on the floor crying when her mother walked in. She denies suicidal, homicidal ideation. Patient is [facility] under the care of [facility] and sees Dr. Keith. She also has recently started therapy. Patient has had some significant changes in her psychiatric medications. She states that after 7 years she was abruptly taken off clonazepam. Currently she is on Wellbutrin which was increased today from 150 mg to 300 mg. Patient also takes BuSpar, gabapentin and was prescribed amitriptyline today which she has not yet taken. Patient does have increased stress at home with recently having to quit her job due to her severe anxiety and upcoming court date for child support. Mother is with the patient and they do live together. She states that she is concerned about the patient's inability to function as a parent when she is having these anxiety attacks. TRAVEL OUTSIDE OF THE [place] IN LAST 30 DAYS: No - HPI Onset: Just prior to arrival Onset/Duration: Sudden Quality of pain: No pain Severity: None Associated symptoms: None Exacerbated by: Denies Similar symptoms previously: Yes Recently seen / treated by doctor: Yes - Related Data Allergies/Adverse Reactions: erythromycin base Allergy (Verified 07/31/18 17:05) lisinopril Allergy (Verified 07/31/18 17:05) mirtazapine [From Remeron] Allergy (Verified 07/31/18 17:05) quetiapine [From Seroquel] Allergy (Verified 07/31/18 17:05) Past Medical History - General Information source: Patient - Social History Smoking Status: Current Every Day Smoker Frequency of alcohol use: None Drug Abuse: None Lives with: Family, Parents Family History: Reviewed & Not Pertinent Patient has suicidal ideation: No Patient has homicidal ideation: No - Past Medical History Cardiac Medical History: Reports: Hx Hypertension Renal/ Medical History: Denies: Hx Peritoneal Dialysis GI Medical History: Reports: Hx Gastroesophageal Reflux Disease Psychiatric Medical History: Reports: Hx Anxiety, Hx Attention Deficit Hyperactivity Disorder, Hx Depression Past Surgical History: Reports: Hx Cardiac Catheterization, Hx Section, Hx Oral Surgery, Hx Orthopedic Surgery - right ankle - Immunizations Hx Diphtheria, Pertussis, Tetanus Vaccination: Yes Review of Systems - Review of Systems Notes: REVIEW OF SYSTEMS: CONSTITUTIONAL : Denies fever, chills, or sweats. Denies recent illness. Denies weight loss, recent hospitalizations. EENT: Denies visual changes, eye pain. Denies sore throat, oral lesions, difficulty swallowing. CARDIOVASCULAR: Denies chest pain. Denies palpitations. Denies lower extremity edema. RESPIRATORY: Denies cough. Denies shortness of breath, wheezing. GASTROINTESTINAL: Denies abdominal pain or distention. Denies nausea, vomiting, or diarrhea. Denies blood in vomitus, stools, or per rectum. Denies black, tarry stools. Denies constipation. GENITOURINARY: Denies difficulty urinating, painful urination, frequency, blood in urine, or vaginal discharge. MUSCULOSKELETAL: Denies back or neck pain or stiffness. Denies joint pain or swelling. SKIN: Denies rash, lesions or sores. HEMATOLOGIC : Denies easy bruising or bleeding. LYMPHATIC: Denies swollen glands. NEUROLOGICAL: Denies confusion or altered mental status. Denies loss of consciousness. Denies dizziness or lightheadedness. Denies headache. Denies weakness or paralysis. Denies problems difficulty with ambulation, slurred speech. Denies sensory loss, numbness, or tingling. Denies seizures. PSYCHIATRIC: Denies suicidal ideation, or homicidal ideation. Denies visual or auditory hallucinations. Physical Exam - Vital signs Vitals: Temp Pulse Resp BP Pulse Ox 97.6 F 87 20 161/130 H 96 07/31/18 17:01 07/31/18 17:01 07/31/18 17:07/31/18 17:07/31/18 17:01 - Notes Notes: PHYSICAL EXAMINATION: GENERAL: Well-appearing, well-nourished and in no acute distress. HEAD: Atraumatic, normocephalic. EYES: Pupils equal round and reactive to light, extraocular movements intact, conjunctiva are normal. ENT: Nares patent, oropharynx clear without exudates. Moist mucous membranes. NECK: Normal range of motion, supple without lymphadenopathy LUNGS: Breath sounds clear to auscultation bilaterally and equal. No wheezes rales or rhonchi. HEART: Regular rate and rhythm without murmurs ABDOMEN: Soft, nontender, nondistended abdomen. No guarding, no rebound. No masses appreciated. Female : deferred Musculoskeletal: Normal range of motion, no pitting or edema. No cyanosis. NEUROLOGICAL: Cranial nerves grossly intact. Normal speech, normal gait. Normal sensory, motor exams PSYCH: Tearful, anxious. Denies suicidal, homicidal ideation denies visual, auditory hallucinations. SKIN: Warm, Dry, normal turgor, no rashes or lesions noted. Course - Re-evaluation Re-evalutation: 07/31/18 17:49 32-year-old female with known depression, anxiety and severe panic disorder presents with complaint of anxiousness, inability to function normally. Patient is under the care of [facility] and does see Dr. Keith. She reports recent changes in her medication which include an increase in her Wellbutrin and a discontinuation of her clonazepam which she reports was abruptly. Patient does report increased stress at home with having to quit her job due to her anxiety and having an upcoming court date to discuss child support. Mother is with the patient. I had a long discussion with the patient regarding alternative therapies for anxiety including meditation, hypnosis, exercise, diet, stretch management which are all available to her free on the Internet. We spoke for almost 30 minutes regarding different methods to control her anxiety. Patient was very receptive to this advice. She was given 1 dose of clonazepam in the emergency department. She does have an upcoming appointment with her behavioral health therapist. Patient was evaluated and treated as appropriate for the patient's presenting symptoms and complaint, with consideration of any critical or life threatening conditions that may be associated with their obtained history and exam as noted above. All results were discussed with patient and her mother who is at the bedside. Patient provided the opportunity to ask questions, and express concerns. Patient was educated on treatments based on their presumed diagnosis as noted above. At this time we will discharge the patient with return precautions and follow-up recommendations. Verbal discharge instructions given a the bedside. Medication warnings reviewed. Patient is in agreement with this plan and has verbalized understanding of return precautions. After careful consideration I feel that that patient can be safely discharged from the emergency department, they were advised to followup with a primary care physician in 2-3 days. Dictation on this chart was performed using voice recognition software and may result in unintended grammatical, spelling, syntax or errors. - Vital Signs Vital signs: Temp Pulse Resp BP Pulse Ox 97.6 F 87 20 161/130 H 96 07/31/18 17:01 07/31/18 17:01 07/31/18 17:01 07/31/18 17:01 07/31/18 17:01 Discharge - Discharge Clinical Impression: Anxiety Condition: Good Disposition: HOME, SELF-CARE Instructions: Anxiety ([facility]) Additional Instructions: Please practice alternative methods such as meditation, exercise, stress managem ent. Please follow-up with your mental health therapist as scheduled. Prescriptions: Clonazepam 0.5 mg PO Q8H #6 tablet Forms: Elevated Blood Pressure Referrals: INA BHATTI FNP-C [Primary Care Provider] - Follow up as needed
== END 2018-07-31 17:55 | disposition home or self-care (01) ==
LOC: ER 16:55
DX: F41.9 Anxiety disorder, unspecified (principal); F32.9 Major depressive disorder, single episode, unspecified; F17.200 Nicotine dependence, unspecified, uncomplicated; I10 Essential (primary) hypertension; K21.9 Gastro-esophageal reflux disease without esophagitis; Z88.3 Allergy status to other anti-infective agents
CPT/HCPCS: 99283; J3490

== ENCOUNTER 2018-08-02 10:26 | Emergency (ER) | payer MEDICAID ==
[2018-08-02 10:35] VITALS: BP 150/101
[2018-08-02] MEDS ORDERED: KETOROLAC TROMETHAMINE 60 MG/2 ML SDV IM ONE (10:43)
[2018-08-02] MEDS ORDERED: LIDOCAINE 5% (700 MG) TRANSDERMAL ADH..PATCH TP ONE (10:43)
--- NOTE | 2018-08-02 10:47 | ER Document Report ---
HPI - HPI Time Seen by Provider: 08/02/18 10:36 Pain Level: 4 Notes: Patient is a 32-year-old female who presents to the ED complaining of acute on chronic low back pain times 1 day. Patient states that she is picking up her daughter's toys and bending at the waist when she felt her pain flareup in her lower back. Patient states that bending twisting of the trunk make his pain worse. Pain does not radiate. Patient states that she has chronic sciatic issues and is currently seeing a chiropractor and possibly may be sent to pain management. She is eating and drinking without any difficulties. She is urinating normally and having normal bowel movements. She has not had any injections or procedures to his lower back. Denies any IV drug abuse. No other concerns or complaints. Denies any headache, fever, head injury, neck pain, changes in vision/speech/mentation/hearing, URI, sore throat, chest pain, palpitations, syncope, cough, shortness of breath, wheeze, dyspnea, abdominal pain, nausea/vomiting/diarrhea, urinary retention, dysuria, hematuria, loss of control of bowel or bladder, numbness/tingling, saddle anesthesia, muscle paralysis/weakness, or rash. - ROS Systems Reviewed and Negative: Yes All other systems reviewed and negative - REPRODUCTIVE Reproductive: DENIES: : Past Medical History - Social History Smoking Status: Never Smoker Family History: Reviewed & Not Pertinent - Past Medical History Cardiac Medical History: Reports: Hx Hypertension Renal/ Medical History: Denies: Hx Peritoneal Dialysis GI Medical History: Reports: Hx Gastroesophageal Reflux Disease Psychiatric Medical History: Reports: Hx Anxiety, Hx Attention Deficit Hyperactivity Disorder, Hx Depression Past Surgical History: Reports: Hx Cardiac Catheterization, Hx Section, Hx Oral Surgery, Hx Orthopedic Surgery - right ankle - Immunizations Hx Diphtheria, Pertussis, Tetanus Vaccination: Yes Vertical Provider Document - CONSTITUTIONAL Agree With Documented VS: Yes Notes: PHYSICAL EXAMINATION: GENERAL: Well-appearing, well-nourished and in no acute distress. LUNGS: Breath sounds clear to auscultation bilaterally and equal. No wheezes rales or rhonchi. HEART: Regular rate and rhythm without murmurs, rubs, gallops. ABDOMEN: Soft, nontender, nondistended abdomen. No guarding, no rebound. No masses appreciated. Normal bowel sounds present. No CVA tenderness bilaterally. No pulsatile mass Musculoskeletal: LE's b/l: FROM to passive/active. Strength 5+/5. No deficits noted. No bony tenderness of extremities. Back: FROM to passive/active. Strength 5+/5. No vertebral point tenderness, stepoffs, or deformities. No other bony tenderness, erythema, swelling, or ecchymosis. SLR negative b/l. + mild tenderness to the L-paraspinal mm b/l. Mild spasming. No SI jt tenderness. No foot drop Extremities: No cyanosis, clubbing, or edema b/l. Peripheral pulses 2+. Capillary refill less than 2 seconds. NEUROLOGICAL: Normal speech, normal gait. Normal sensory, motor exams. Reflexes 2+ b/l. PSYCH: Normal mood, normal affect. SKIN: Warm, Dry, normal turgor, no rashes or lesions noted. - INFECTION CONTROL TRAVEL OUTSIDE OF THE [place] IN LAST 30 DAYS: No Course - Re-evaluation Re-evalutation: 08/02/18 10:44 Patient is an afebrile, well-hydrated, 32-year-old female who presents to the ED with acute on chronic low back pain. Vitals are acceptable. PE is otherwise unremarkable for any focal neurological deficits. Patient was given Toradol and a Lidoderm patch. She has no significant tachycardia, tachypnea, or hypoxia. She is nontoxic-appearing and is tolerating p.o. without difficulties. There are no signs of infection. No other red flag symptoms noted. No other labs or imaging warranted at this time based on H&P. Low suspicion for any meningitis, fracture, expanding/ruptured AAA, cauda equina syndrome, epidural mass lesion/abscess, herniated disc causing severe spinal stenosis, or other systemic infection at this time. Patient is aware that this condition can change from initial presentation and that she needs monitor symptoms closely for any acute changes. I will send her home with a prescription for baclofen and naproxen. Conservative measures otherwise for symptoms. Recheck with your PCM in 3-5 days. Consider consult with orthopedic/physical therapy. Return to the ED with any worsening/concerning symptoms otherwise as reviewed discharge. Patient is in agreement. - Vital Signs Vital signs: Temp Pulse Resp BP Pulse Ox 97.9 F 83 17 150/101 H 98 08/02/18 10:33 08/02/18 10:33 08/02/18 10:33 08/02/18 10:33 08/02/18 10:33 Discharge - Discharge Clinical Impression: Low back pain Qualifiers: Chronicity: acute Back pain laterality: bilateral Sciatica presence: without sciatica Qualified Code(s): M54.5 - Low back pain Condition: Stable Disposition: HOME, SELF-CARE Instructions: Low Back Pain ([facility]), Stretching Exercises for the Back ([facility]), Muscle Relaxers ([facility]) Additional Instructions: Rest, Ice Tylenol/ibuprofen as needed Light stretches daily Strength exercises as able Moist heat and massage may help F/u with your PCP in 3-5 days for a recheck Consider consult(s) with Orthopedics/physical therapy for ongoing/worsening symptoms Return to the ED with any worsening symptoms and/or development of fever, headache, chest pain, palpitations, syncope, shortness of breath, trouble breat carmenza, abdominal pain, n/v/d, blood in stool/urine, loss of control of bowel/bladder, urinary retention, muscle weakness/paralysis, saddle anesthesia, numbness/tingling, or other worsening symptoms that are concerning to you. Prescriptions: Baclofen [Baclofen 10 mg Tablet] 5 - 10 mg PO BID PRN #10 tablet PRN Reason: Naproxen 500 mg PO BID #10 tablet Forms: Elevated Blood Pressure Referrals: INA BHATTI FNP-C [Primary Care Provider] - Follow up as needed [facility] [Provider Group] - Follow up as needed
== END 2018-08-02 11:06 | disposition home or self-care (01) ==
LOC: ER 10:26
DX: M54.5 Low back pain (principal); G89.29 Other chronic pain; R25.2 Cramp and spasm; I10 Essential (primary) hypertension
CPT/HCPCS: 99283; 96372; J1885; J3490

== ENCOUNTER → 2019-04-04 | Outpatient (CLI) | payer MEDICAID ==
--- NOTE | 2019-04-04 14:10 | RADIOLOGY REPORT (SQ) ---
EXAM DESCRIPTION: LUMBAR SPINE COMPLETE COMPLETED DATE/TIME: 04/04/2019 10:42 am REASON FOR STUDY: LUMBAGO WITH SCIATICA, LEFT SIDE M54.42 LUMBAGO WITH SCIATICA, LEFT SIDE COMPARISON: None. NUMBER OF VIEWS: Five views including obliques. TECHNIQUE: AP, lateral, oblique, and sacral radiographic images acquired of the lumbar spine. LIMITATIONS: None. FINDINGS: MINERALIZATION: Normal. SEGMENTATION: Normal. No transitional anatomy. ALIGNMENT: Slight convex left scoliotic curve. VERTEBRAE: Maintained height. No fracture or worrisome bone lesion. DISCS: Preserved height. No significant osteophytes or end plate irregularity. POSTERIOR ELEMENTS: Pedicles and facets are intact. No pars defect or posterior arch defects. HARDWARE: None in the spine. PARASPINAL SOFT TISSUES: Normal. PELVIS: Intact as visualized. No fractures or worrisome bone lesions. SI joints intact. OTHER: No other significant finding. IMPRESSION: 1. Allowing for minimal scoliosis, normal five view lumbosacral spine. TECHNICAL DOCUMENTATION: JOB ID: [id number] [employer]- All Rights Reserved Reading location - IP/workstation name: [email or web address]
== END ==
LOC: OD 10:23
PROVIDERS: ATTEND Nurse Practitioner Family
DX: M54.42 Lumbago with sciatica, left side (principal)
CPT/HCPCS: 72110

== ENCOUNTER 2019-04-12 12:08 | Emergency (ER) | payer MEDICAID ==
[2019-04-12 12:31] VITALS: BP 125/69
--- NOTE | 2019-04-12 12:37 | ER Document Report ---
ED Medical Screen (RME) - General Chief Complaint: Arm Pain Stated Complaint: RIGHT WRIST AND ANKLE PAIN/TINGLING IN FINGERS Time Seen by Provider: 04/12/19 12:34 Primary Care Provider: INA BHATTI FNP-C [Primary Care Provider] - Follow up as needed Mode of Arrival: Wheelchair Information source: Patient Notes: 33-year-old female presents to ED for complaint of right wrist and ankle pain for over a month. She states she is been to her primary doctor but they will wait to see with the results of the back x-rays were. She states the back x- rays were negative and she needs these areas examined. I have placed an x-ray for the right ankle and wrist. She states her naproxen is no longer working. She will be evaluated in the emergency room. Last menstrual period started on April 10 I have greeted and performed a rapid initial assessment of this patient. A comprehensive ED assessment and evaluation of the patient, analysis of test results and completion of medical decision making process will be conducted by an additional ED providers. TRAVEL OUTSIDE OF THE [place] IN LAST 30 DAYS: No - Related Data Allergies/Adverse Reactions: erythromycin base Allergy (Verified 08/02/18 10:27) lisinopril Allergy (Verified 08/02/18 10:27) mirtazapine [From Remeron] Allergy (Verified 08/02/18 10:27) quetiapine [From Seroquel] Allergy (Verified 08/02/18 10:27) Past Medical History - Social History Family history: Reviewed & Not Pertinent - Past Medical History Cardiac Medical History: Reports: Hx Hypertension Renal/ Medical History: Denies: Hx Peritoneal Dialysis GI Medical History: Reports: Hx Gastroesophageal Reflux Disease Psychiatric Medical History: Reports: Hx Anxiety, Hx Attention Deficit Hyperactivity Disorder, Hx Depression Past Surgical History: Reports: Hx Cardiac Catheterization, Hx Section, Hx Oral Surgery, Hx Orthopedic Surgery - right ankle - Immunizations Hx Diphtheria, Pertussis, Tetanus Vaccination: Yes Physical Exam - Vital signs Vitals: Temp Pulse Resp BP Pulse Ox 98.5 F 71 18 125/69 97 04/12/19 12:31 04/12/19 12:31 04/12/19 12:31 04/12/19 12:31 04/12/19 12:31 Course - Vital Signs Vital signs: Temp Pulse Resp BP Pulse Ox 98.5 F 71 18 125/69 97 04/12/19 12:31 04/12/19 12:31 04/12/19 12:31 04/12/19 12:31 04/12/19 12:31 Doctor's Discharge - Discharge Referrals: INA BHATTI, ANALYTICAL TECHNICIAN-C [Primary Care Provider] - Follow up as needed
--- NOTE | 2019-04-12 13:42 | RADIOLOGY REPORT (SQ) ---
EXAM DESCRIPTION: ANKLE RIGHT COMPLETE COMPLETED DATE/TIME: 04/12/2019 1:31 pm REASON FOR STUDY: pain for month COMPARISON: None. NUMBER OF VIEWS: Three views. TECHNIQUE: AP, lateral, and oblique radiographic images acquired of the right ankle. LIMITATIONS: None. FINDINGS: MINERALIZATION: Normal. BONES: Old fracture distal fibula status post plate and screw fixation. No acute fracture or disloca tion. No worrisome bone lesions. JOINTS: No effusions. SOFT TISSUES: No soft tissue swelling. No foreign body. OTHER: No other significant finding. IMPRESSION: NO RADIOGRAPHIC EVIDENCE OF ACUTE INJURY. TECHNICAL DOCUMENTATION: JOB ID: [id number] [employer]- All Rights Reserved Reading location - IP/workstation name: [email or web address]
--- NOTE | 2019-04-12 13:43 | RADIOLOGY REPORT (SQ) ---
EXAM DESCRIPTION: WRIST RIGHT 3 VIEWS COMPLETED DATE/TIME: 04/12/2019 1:31 pm REASON FOR STUDY: pain for month COMPARISON: None. NUMBER OF VIEWS: Three views. TECHNIQUE: AP, lateral, and oblique radiographic images acquired of the right wrist. LIMITATIONS: None. FINDINGS: MINERALIZATION: Normal. BONES: No acute fracture or dislocation. No worrisome bone lesions. Normal alignment. SOFT TISSUES: No soft tissue swelling. No foreign body. OTHER: No other significant finding. IMPRESSION: NEGATIVE STUDY OF THE RIGHT WRIST. NO RADIOGRAPHIC EVIDENCE OF ACUTE INJURY. TECHNICAL DOCUMENTATION: JOB ID: [id number]- All Rights Reserved Reading location - IP/workstation name: [email or web address]
--- NOTE | 2019-04-12 14:55 | ER Document Report ---
HPI - HPI Time Seen by Provider: 04/12/19 12:34 Pain Level: 3 Notes: 33-year-old female presents to ED for complaint of right wrist and ankle pain for over a month. She states her naproxen is no longer working. Reports pain is 6 out of 10, throbbing achy. Able to bear partial weight. Patient is right- handed, states that she has been writing a lot lately due to taking notes and taking care of her during her referral. Patient did have right ankle surgery approximately 3 years ago, states she does have intermittent pain. Patient is currently wearing sandals. Denies any recent trauma. denies fevers, chills, chest pain,palpitations, shortness of breath, dyspnea, nausea, vomiting, diarrhea, abdominal pain, hematuria,weakness, bowel or bladder dysfunction, saddle anesthesia, numbness or tingling in bilateral upper or lower extremities equally, muscle paralysis, weakness in bilateral upper or lower extremities equally or rash. - REPRODUCTIVE LMP: 04/2019 Reproductive: DENIES: : Past Medical History - General Information source: Patient - Social History Smoking Status: Current Every Day Smoker Chew tobacco use (# tins/day): No Frequency of alcohol use: None Drug Abuse: None Family History: Reviewed & Not Pertinent Patient has suicidal ideation: No Patient has homicidal ideation: No - Past Medical History Cardiac Medical History: Reports: Hx Hypertension Renal/ Medical History: Denies: Hx Peritoneal Dialysis GI Medical History: Reports: Hx Gastroesophageal Reflux Disease Psychiatric Medical History: Reports: Hx Anxiety, Hx Attention Deficit Hyperactivity Disorder, Hx Depression Past Surgical History: Reports: Hx Cardiac Catheterization, Hx Section, Hx Oral Surgery, Hx Orthopedic Surgery - right ankle - Immunizations Hx Diphtheria, Pertussis, Tetanus Vaccination: Yes Vertical Provider Document - CONSTITUTIONAL Agree With Documented VS: Yes Exam Limitations: No Limitations General Appearance: WD/WN Notes: PHYSICAL EXAMINATION: reviewed vital signs by RN GENERAL: Well-appearing, well-nourished and in no acute distress. HEAD: Atraumatic, normocephalic. EYES: Pupils equal round and reactive to light, extraocular movements intact, conjunctiva are normal. ENT: Nares patent, oropharynx clear without exudates. Moist mucous membranes. NECK: Normal range of motion, supple without lymphadenopathy LUNGS: Breath sounds clear to auscultation bilaterally and equal. No wheezes rales or rhonchi. HEART: Regular rate and rhythm without murmurs ABDOMEN: Soft, nontender, nondistended abdomen. No guarding, no rebound. No masses appreciated. Female : deferred Musculoskeletal: Normal range of motion, no pitting or edema. No cyanosis. Noted right wrist pain with flexion, extension, inversion, eversion of wrist. digits in right and left with full aprom.. Regional Construction Manager + 2 BUE equally. Snuffbox tenderness negative on right. radial pulses + 2 BUE equally. Negative kanavels sign. No open wounds or drainage from wrist. No vascular compromise.No body crepitus or focal area of TTP. Limited ROM with flexion, extension, ulnar/radial deviation . Motor and sensory function of ulnar, radial, medial nerves intact bilaterally and equally. right ankle with swelling, tenderness on lateral aspect of ankle. pain with inversion. squeeze test negative. dtr +2 BLE. Limited APROM. distal pulses + 2 BLE equally. Full motor and sensory function of bilateral lower extremities. No noted open wounds or abrasion. Normal gait. No vascular compromise. Peroneal nerve is intact with strong eversion and plantar flexion. Negative anterior drawer test. NEUROLOGICAL: Cranial nerves grossly intact. Normal speech, normal gait. Normal sensory, motor exams PSYCH: Normal mood, normal affect. SKIN: Warm, Dry, normal turgor, no rashes or lesions noted. - INFECTION CONTROL TRAVEL OUTSIDE OF THE [place] IN LAST 30 DAYS: No Course - Re-evaluation Re-evalutation: Afebrile vital stable no distress, nurse's notes reviewed. Ankle x-ray and right wrist x-ray negative for any acute fracture. Will place patient in Aircast as well as cock-up splint. Advised to apply heat 20 minutes on 20 minutes off several times a day, take anti-inflammatories, wear supportive shoes, follow-up with primary care provider and enrichment specialist as needed. After performing a Medical Screening Examination, I estimate there is LOW risk for OPEN FRACTURE, COMPARTMENT SYNDROME, DEEP VENOUS THROMBOSIS, ACUTE TENDON RUPTURE, or NEUROVASCULAR INJURY thus I consider the discharge disposition reas onable. I have reevaluated this patient multiple times and no significant life threatening changes are noted. The patient and I have discussed the diagnosis and risks, and we agree with discharging home to closely follow-up with their primary doctor or the referral orthopedist with the understanding that symptoms and presentations can change. We also discussed returning to the Emergency Department immediately if new or worsening symptoms occur. We have discussed the symptoms which are most concerning (e.g., changing or worsening pain, numbness, weakness) that necessitate immediate return1 - Vital Signs Vital signs: Temp Pulse Resp BP Pulse Ox 98.5 F 71 18 125/69 97 04/12/19 12:31 04/12/19 12:31 04/12/19 12:31 04/12/19 12:31 04/12/19 12:31 Discharge - Discharge Clinical Impression: Right ankle pain, Right wrist pain Condition: Stable Disposition: HOME, SELF-CARE Instructions: Ankle Stirrup Splint ([facility]), Use of Crutches ([facility]), Soft Ankle Splint ([facility]), Sprained Ankle ([facility]), Wrist Sprain ([facility]) Additional Instructions: In her ankle and agree wrist are negative. R.I.C.E therapy, (rest, ice, compression, elevation) follow-up with enrichment specialist within the next week for further evaluation as well as primary care provider. After applying ice, apply heat 20 minutes on 20 minutes off several times a day. Return immediately for any new or worsening symptoms. Follow up with primary care provider, call tomorrow to make followup appointment. Prescriptions: Meloxicam [Mobic] 7.5 mg PO DAILY #7 tablet Referrals: INA BHATTI FNP-C [Primary Care Provider] - Follow up as needed MARIA DOLORES JORDAN JR, DO [ACTIVE PROVISIONAL STAFF] - Follow up as needed
== END 2019-04-12 15:43 | disposition home or self-care (01) ==
LOC: ER 12:08
DX: M25.531 Pain in right wrist (principal); M25.571 Pain in right ankle and joints of right foot; F17.200 Nicotine dependence, unspecified, uncomplicated; I10 Essential (primary) hypertension; Z98.890 Other specified postprocedural states
CPT/HCPCS: 99283; 73610; 73110; L1902; L3908

== ENCOUNTER → 2019-05-28 | Outpatient (CLI) | payer MEDICAID | LOC: OD 10:43 | PROVIDERS: ATTEND Nurse Practitioner Acute Care | DX: R30.0 Dysuria (principal) | CPT/HCPCS: 87086; 87088 ==

== ENCOUNTER 2019-06-12 18:20 | Emergency (ER) | payer MEDICAID ==
[2019-06-12] MEDS ORDERED: ASPIRIN 81 MG TABLET, CHEWABLE PO ONE (18:51)
[2019-06-12 18:56] VITALS: BP 127/92
--- NOTE | 2019-06-12 18:58 | ER Document Report ---
ED Medical Screen (RME) - General Chief Complaint: Chest Pain Stated Complaint: CHEST PAIN Time Seen by Provider: 06/12/19 18:51 Primary Care Provider: YESENIA MANCIA NP [Primary Care Provider] - Follow up as needed Mode of Arrival: Ambulatory Information source: Patient Notes: 33-year-old female presented to ED for complaint of chest pain with shortness of breath through to her back. She states it has been going off and on for the last week. States she has had severe anxiety since she was a small child and has been on almost every medication there is for anxiety and nothing long-term helps. She states she did take clonazepam for a while and it did help but that is the only thing that is helped. Takes Lexapro at this time from a free clinic. She states she has been taking it for about a year and it is stopped helping. She states Seroquel worked very well but she developed an allergic reaction and had hives all over so she had stopped taking it I have greeted and performed a rapid initial assessment of this patient. A comprehensive ED assessment and evaluation of the patient, analysis of test results and completion of medical decision making process will be conducted by an additional ED providers. TRAVEL OUTSIDE OF THE [place] IN LAST 30 DAYS: No - Related Data Allergies/Adverse Reactions: erythromycin base Allergy (Verified 08/02/18 10:27) lisinopril Allergy (Verified 08/02/18 10:27) mirtazapine [From Remeron] Allergy (Verified 08/02/18 10:27) quetiapine [From Seroquel] Allergy (Verified 08/02/18 10:27) Past Medical History - Social History Family history: Reviewed & Not Pertinent - Past Medical History Cardiac Medical History: Reports: Hx Hypertension Renal/ Medical History: Denies: Hx Peritoneal Dialysis GI Medical History: Reports: Hx Gastroesophageal Reflux Disease Psychiatric Medical History: Reports: Hx Anxiety, Hx Attention Deficit Hyperactivity Disorder, Hx Depression Past Surgical History: Reports: Hx Cardiac Catheterization, Hx Section, Hx Oral Surgery, Hx Orthopedic Surgery - right ankle - Immunizations Hx Diphtheria, Pertussis, Tetanus Vaccination: Yes Doctor's Discharge - Discharge Referrals: YESENIA MANCIA NP [Primary Care Provider] - Follow up as needed
[2019-06-12] MEDS ORDERED: ONDANSETRON 4 MG TAB.RAPDIS PO ONE (19:01)
[2019-06-12 19:14] LABS: ABSOLUTE BASOPHILS # (AUTO) 0.2 10^3/uL (0.0-0.2); ABSOLUTE EOSINOPHILS # (AUTO) 0.3 10^3/uL (0.0-0.6); ABSOLUTE LYMPHOCYTES (AUTO) 4.4 10^3/uL (0.5-4.7); ABSOLUTE NEUT (AUTO) 9.8 10^3/uL (1.7-8.2); BASOPHILS % (AUTO) 1.1 % (0-2); EOSINOPHILS % (AUTO) 1.7 % (0-6); HEMATOCRIT 39.2 % (36.0-47.0); HEMOGLOBIN 13.2 g/dL (12.0-15.5); LYMPHOCYTES % (AUTO) 28.4 % (13-45); MEAN CORPUSCULAR HGB CONC 33.7 g/dL (32.0-36.0); MEAN CORPUSCULAR VOLUME 83 fl (80-97); MONOCYTES % (AUTO) 6.2 % (3-13); PLATELET COUNT 293 10^3/uL (150-450); RED BLOOD COUNT 4.73 10^6/uL (3.72-5.28); RED CELL DISTRIBUTION WIDTH 14.8 % (11.5-14.0); SEGMENTED NEUTROPHILS % (AUTO) 62.6 % (42-78); TOTAL CELLS COUNTED % (AUTO) 100 %; WHITE BLOOD COUNT 15.6 10^3/uL (4.0-10.5)
[2019-06-12 19:32] LABS: ALBUMIN 4.6 g/dL (3.5-5.0); ALKALINE PHOSPHATASE 81 U/L (38-126); ANION GAP 10 (5-19); ASPARTATE AMINO TRANSFERASE 24 U/L (14-36); BILIRUBIN,DIRECT 0.3 mg/dL (0.0-0.4); BILIRUBIN,TOTAL 0.5 mg/dL (0.2-1.3); BLOOD UREA NITROGEN 16 mg/dL (7-20); CALCIUM 10.1 mg/dL (8.4-10.2); CARBON DIOXIDE 26 mmol/L (22-30); CHLORIDE 102 mmol/L (98-107); GLUCOSE 77 mg/dL (75-110); POTASSIUM 3.9 mmol/L (3.6-5.0); TOTAL PROTEIN 7.7 g/dL (6.3-8.2)
--- NOTE | 2019-06-12 19:43 | RADIOLOGY REPORT (SQ) ---
EXAM DESCRIPTION: CHEST 2 VIEWS COMPLETED DATE/TIME: 06/12/2019 7:13 pm REASON FOR STUDY: chest pain COMPARISON: None. EXAM PARAMETERS: NUMBER OF VIEWS: two views TECHNIQUE: Digital Frontal and Lateral radiographic views of the chest acquired. RADIATION DOSE: NA LIMITATIONS: none FINDINGS: LUNGS AND PLEURA: No opacities, masses or pneumothorax. No pleural effusion. MEDIASTINUM AND HILAR STRUCTURES: No masses or contour abnormalities. HEART AND VASCULAR STRUCTURES: Heart normal size. No evidence for failure. BONES: No acute findings. HARDWARE: None in the chest. OTHER: No other significant finding. IMPRESSION: NO ACUTE RADIOGRAPHIC FINDING IN THE CHEST. TECHNICAL DOCUMENTATION: JOB ID: [id number] [employer]- All Rights Reserved Reading location - IP/workstation name: [email or web address]
--- NOTE | 2019-06-12 20:44 | RADIOLOGY REPORT (SQ) ---
EXAM DESCRIPTION: RadLex: US ABDOMEN LIMITED CLINICAL HISTORY: 33 years Female; upper abdominal pain through to back TECHNIQUE: Right upper quadrant ultrasound was performed. COMPARISON: None. FINDINGS: Pancreas: Poorly visualized due to bowel gas Liver: 15 cm long with somewhat echogenic parenchyma. No ductal distention. Portal venous flow is hepatopedal, normal. Gallbladder: normal with no gallstones or sonographic evidence for acute cholecystitis. No pericholecystic fluid. No sonographic De Jesus's sign. Common bile duct: 4 mm. Right kidney: 9.4 cm long. No hydronephrosis. Maximum aortic diameter 2.4 cm IMPRESSION: 1. No gallstones or evidence for acute cholecystitis. 2. Slightly echogenic liver, suggesting hepatic steatosis.
--- NOTE | 2019-06-12 22:39 | EKG REPORT ---
SEVERITY:- BORDERLINE ECG - SINUS RHYTHM PROBABLE LEFT ATRIAL ABNORMALITY : Confirmed by: Winston Bolaños 12-Jun-2019 22:38:43
== END 2019-06-12 21:15 | disposition left against medical advice (07) ==
LOC: ER 18:20
DX: R07.9 Chest pain, unspecified (principal); R06.02 Shortness of breath; I10 Essential (primary) hypertension; F41.9 Anxiety disorder, unspecified; Z79.899 Other long term (current) drug therapy; Z88.8 Allergy status to other drugs, medicaments and biological substances; Z88.1 Allergy status to other antibiotic agents; Z53.20 Procedure and treatment not carried out because of patient's decision for unspecified reasons
CPT/HCPCS: 93005; 99281; 36415; 83690; 85025; 80053; 71046; 76705; 93010; S0119